=== PATIENT | male | born 1970 | race Caucasian/White ===

== ENCOUNTER 2016-11-06 17:29 | Emergency (ER) | payer MEDICAID, OTHER ==
[2016-11-06] MEDS ORDERED: Sodium Chloride 0.9% 2.5 ML Syringe FLUSH PRN (17:35)
[2016-11-06] MEDS ORDERED: Sodium Chloride 0.9% 10 ML Syringe FLUSH PRN (17:35)
[2016-11-06] MEDS ORDERED: Sodium Chloride 0.9% 1,000 ML IV SCH (17:45)
[2016-11-06] MEDS ORDERED: Ketorolac 30 MG/ML SDV IVPUSH ONE (17:49)
--- NOTE | 2016-11-06 17:55 | EDM.PDOC ---
ED HPI Trauma <Jerson Reno - Last Filed: 11/06/16 20:19> - General Source: Reports: Patient History Limitations: Reports: No limitations <Desiree Garcia - Last Filed: 11/07/16 07:18> - General Chief Complaint: Trauma Stated Complaint: UNK Time Seen by Provider: 11/06/16 17:32 - History of Present Illness INITIAL COMMENTS - FREE TEXT/NARRATIVE: History of present illness: [] Patient is currently housed at the residential and was found by staff hanging by a bed sheet with labored breathing with a radial pulse before being cut down. He did not lose consciousness at any time and complained of neck pain immediately. He was allowed to sit up and then complained of dizziness. Apparently according to Ofc. Marcel at the residential sent to text to his at 16:20 sating "I'm ending it". He then sent another text at 16:37 stating "I'm about to ". At 16 :42 the residential was distributing blankets and found him hanging in his cell. He denies any numbness or tingling to his extremities, shortness of breath, chest pain or headache. Review of systems: As per history of present illness and below otherwise all systems reviewed and negative. Past medical history: As per history of present illness and as reviewed below otherwise noncontributory. Surgical history: As per history of present illness and as reviewed below otherwise noncontributory. Social history: No reported history of drug or alcohol abuse. Family history: As per history of present illness and as reviewed below otherwise noncontributory. Physical exam: General: Well developed, well nourished in NAD HEENT: Atraumatic, normocephalic, pupils reactive, negative for conjunctival pallor or scleral icterus, mucous membranes moist, throat clear, neck supple, nontender, trachea midline. Lungs: Clear to auscultation, breath sounds equal bilaterally, chest nontender. Heart: S1S2, regular, negative for clicks, rubs, or JVD. Abdomen: Soft, nondistended, nontender. Negative for masses or hepatosplenomegaly. Negative for costovertebral tenderness. Pelvis: Stable nontender. Genitourinary: Deferred. Rectal: Deferred. Extremities: Atraumatic, negative for cords or calf pain. Neurovascular unremarkable. Neuro: Awake, alert, oriented. Cranial nerves II through XII unremarkable. Cerebellum unremarkable. Motor and sensory unremarkable throughout. Exam nonfocal. Diagnostics: [] Therapeutics: [] Impression: [] Plan: [] Definitive disposition and diagnosis as appropriate pending reevaluation and review of above. (Desiree Garcia) Allergies/ADRs: Allergies Penicillins Allergy (Verified 11/06/16 17:36) Hives Home Medications: Ambulatory Orders . [No Known Home Meds] 11/06/16 [Confirmed 11/06/16] Past Medical History - Past Health History Medical/Surgical History: Denies Medical/Surgical History <Desiree Garcia - Last Filed: 11/07/16 07:18> Social & Family History - Family History Family Medical History: Noncontributory - Tobacco Use Smoking Status *Q: Current Every Day Smoker Years of Tobacco use: 30 Packs/Tins Daily: 2 Used Tobacco, but Quit: No Second Hand Smoke Exposure: No - Alcohol Use Days Per Week of Alcohol Use: 7 Number of Drinks Per Day: 5 Total Drinks Per Week: 35 - Recreational Drug Use Recreational Drug Use: Yes Drug Use in Last 12 Months: Yes Recreational Drug Type: Reports: Heroin, Marijuana/Hashish, Methamphetamine Other Recreational Drug Type: Patient states "I do a lot of different drugs at different times." Recreational Drug Use Frequency: Daily <Desiree Garcia - Last Filed: 11/07/16 07:18> Review of Systems - Review of Systems Review Of Systems: See Below (See history of present illness) <Desiree Garcia - Last Filed: 11/07/16 07:18> ED EXAM, TRAUMA (MAJOR/MULTI) - Physical Exam Exam: See Below (See history of present illness) <Desiree Garcia - Last Filed: 11/07/16 07:18> Course <Jerson Reno - Last Filed: 11/06/16 20:19> <Desiree Garcia - Last Filed: 11/07/16 07:18> - Vital Signs Text/Narrative:: [facility] health services presented to evaluate patient patient has been medically cleared patient will be transferred to the [facility] psychiatric services in [place]. (Jerson Reno) Last Recorded V/S: Last Vital Signs Temp 37.1 C 11/06/16 21:00 Pulse 90 11/06/16 21:00 Resp 20 11/06/16 21:00 BP 127/79 11/06/16 21:00 Pulse Ox 97 11/06/16 21:00 (Jerson Reno) (Desiree Garcia) - Orders/Labs/Meds Orders: Active Orders 24 hr Category Date Time Status EKG Documentation Completion [RC] STAT Care 11/06/16 17:38 Active Cervical Spine 2V or 3V [CR] Stat Exams 11/06/16 17:33 Taken Cervical Spine wo Cont [CT] Stat Exams 11/06/16 18:56 Taken FREE T3 [REF] Stat Lab 11/06/16 18:45 Received Peripheral IV Insertion Adult [OM.PC] Stat Oth 11/06/16 17:35 Ordered (Jerson Reno) (Desiree Garcia) Labs: Laboratory Tests 11/06/16 11/06/16 11/06/16 Range/Units 17:54 18:02 18:02 WBC 10.89 (4.0-11.0) K/uL RBC 5.72 (4.50-5.90) M/uL Hgb 16.6 (13.0-17.0) g/dL Hct 49.5 (38.0-50.0) % MCV 86.5 (80.0-98.0) fL MCH 29.0 (27.0-32.0) pg MCHC 33.5 (31.0-37.0) g/dL RDW Std Deviation 44.8 (28.0-62.0) fl RDW Coeff of Joaquín 14 (11.0-15.0) % Plt Count 181 (150-400) K/uL MPV 11.80 (7.40-12.00) fL Neut % (Auto) 82.3 H (48.0-80.0) % Lymph % (Auto) 11.8 L (16.0-40.0) % Beaver % (Auto) 5.8 (0.0-15.0) % Eos % (Auto) 0.0 (0.0-7.0) % Baso % (Auto) 0.1 (0.0-1.5) % Neut # 9.0 H (1.4-5.7) K/uL Lymph # 1.3 (0.6-2.4) K/uL Beaver # 0.6 (0.0-0.8) K/uL Eos # 0.0 (0.0-0.7) K/uL Baso # 0.0 (0.0-0.1) K/uL Nucleated RBC % 0.0 /100WBC Nucleated RBCs # 0 K/uL Sodium (136-146) mmol/L Potassium (3.5-5.1) mmol/L Chloride (98-110) mmol/L Carbon Dioxide (21-31) mmol/L BUN (6.0-23.0) mg/dL Creatinine (0.6-1.5) mg/dL Est Cr Clr Drug Dosing mL/min Estimated GFR (MDRD) ml/min Glucose (60-110) mg/dL Calcium (8.8-10.8) mg/dL Magnesium (1.5-2.3) mEq/L Total Bilirubin (0.1-1.5) mg/dL AST (5-40) IU/L ALT (8-54) IU/L Alkaline Phosphatase (40-150) Total Protein (6.0-8.0) g/dL Albumin (3.5-5.0) g/dL Globulin (2.0-3.5) g/dL Albumin/Globulin Ratio (1.3-2.8) TSH 3rd Generation (0.47-5.0) uIU/mL Urine Color YELLOW Urine Appearance CLEAR Urine pH 6.0 (5.0-8.0) Ur Specific [place] 1.015 (1.001-1.035) Urine Protein NEGATIVE (NEGATIVE) mg/dL Urine Glucose (UA) NEGATIVE (NEGATIVE) mg/dL Urine Ketones 40 H (NEGATIVE) mg/dL Urine Occult Blood NEGATIVE (NEGATIVE) Urine Nitrite NEGATIVE (NEGATIVE) Urine Bilirubin NEGATIVE (NEGATIVE) Urine Urobilinogen 0.2 (<2.0) EU/dL Ur Leukocyte Esterase NEGATIVE (NEGATIVE) Urine RBC 0-2 (0-2/HPF) Urine WBC 0-1 (0-5/HPF) Ur Epithelial Cells RARE (NONE-FEW) Urine Bacteria RARE (NEGATIVE) Salicylates (0-20) mg/dL Urine Opiates Screen NEGATIVE (NEGATIVE) Ur Oxycodone Screen NEGATIVE (NEGATIVE) Urine Methadone Screen NEGATIVE (NEGATIVE) Acetaminophen ug/mL Ur Barbiturates Screen NEGATIVE (NEGATIVE) Ur Phencyclidine Scrn NEGATIVE (NEGATIVE) Ur Amphetamine Screen NEGATIVE (NEGATIVE) U Methamphetamines Scrn POSITIVE (NEGATIVE) U Benzodiazepines Scrn NEGATIVE (NEGATIVE) U Cocaine Metab Screen NEGATIVE (NEGATIVE) U Marijuana (THC) Screen POSITIVE (NEGATIVE) Ethyl Alcohol mg/dL 11/06/16 Range/Units 18:45 WBC (4.0-11.0) K/uL RBC (4.50-5.90) M/uL Hgb (13.0-17.0) g/dL Hct (38.0-50.0) % MCV (80.0-98.0) fL MCH (27.0-32.0) pg MCHC (31.0-37.0) g/dL RDW Std Deviation (28.0-62.0) fl RDW Coeff of Joaquín (11.0-15.0) % Plt Count (150-400) K/uL MPV (7.40-12.00) fL Neut % (Auto) (48.0-80.0) % Lymph % (Auto) (16.0-40.0) % Beaver % (Auto) (0.0-15.0) % Eos % (Auto) (0.0-7.0) % Baso % (Auto) (0.0-1.5) % Neut # (1.4-5.7) K/uL Lymph # (0.6-2.4) K/uL Beaver # (0.0-0.8) K/uL Eos # (0.0-0.7) K/uL Baso # (0.0-0.1) K/uL Nucleated RBC % /100WBC Nucleated RBCs # K/uL Sodium 142 (136-146) mmol/L Potassium 3.7 (3.5-5.1) mmol/L Chloride 110 (98-110) mmol/L Carbon Dioxide 21 (21-31) mmol/L BUN 7 (6.0-23.0) mg/dL Creatinine 1.0 (0.6-1.5) mg/dL Est Cr Clr Drug Dosing 106.53 mL/min Estimated GFR (MDRD) > 60.0 ml/min Glucose 111 H (60-110) mg/dL Calcium 8.8 (8.8-10.8) mg/dL Magnesium 1.6 (1.5-2.3) mEq/L Total Bilirubin 0.9 (0.1-1.5) mg/dL AST 31 (5-40) IU/L ALT 58 H (8-54) IU/L Alkaline Phosphatase 49 (40-150) Total Protein 7.4 (6.0-8.0) g/dL Albumin 4.0 (3.5-5.0) g/dL Globulin 3.4 (2.0-3.5) g/dL Albumin/Globulin Ratio 1.2 L (1.3-2.8) TSH 3rd Generation 0.85 (0.47-5.0) uIU/mL Urine Color Urine Appearance Urine pH (5.0-8.0) Ur Specific [place] (1.001-1.035) Urine Protein (NEGATIVE) mg/dL Urine Glucose (UA) (NEGATIVE) mg/dL Urine Ketones (NEGATIVE) mg/dL Urine Occult Blood (NEGATIVE) Urine Nitrite (NEGATIVE) Urine Bilirubin (NEGATIVE) Urine Urobilinogen (<2.0) EU/dL Ur Leukocyte Esterase (NEGATIVE) Urine RBC (0-2/HPF) Urine WBC (0-5/HPF) Ur Epithelial Cells (NONE-FEW) Urine Bacteria (NEGATIVE) Salicylates < 5.0 (0-20) mg/dL Urine Opiates Screen (NEGATIVE) Ur Oxycodone Screen (NEGATIVE) Urine Methadone Screen (NEGATIVE) Acetaminophen < 3.0 ug/mL Ur Barbiturates Screen (NEGATIVE) Ur Phencyclidine Scrn (NEGATIVE) Ur Amphetamine Screen (NEGATIVE) U Methamphetamines Scrn (NEGATIVE) U Benzodiazepines Scrn (NEGATIVE) U Cocaine Metab Screen (NEGATIVE) U Marijuana (THC) Screen (NEGATIVE) Ethyl Alcohol < 10.0 mg/dL (Jerson Reno) Meds: Medications Discontinued Medications Generic Name Dose Route Start Last Admin Trade Name Freq PRN Reason Stop Dose Admin Sodium Chloride 1,000 mls @ 999 mls/hr 11/06/16 17:45 11/06/16 18:26 Normal Saline IV 999 mls/hr .BOLUS BOSTON Administration Ketorolac Tromethamine 30 mg 11/06/16 17:49 11/06/16 18:01 Toradol IVPUSH 11/06/16 17:50 30 mg ONETIME ONE Administration Sodium Chloride 10 ml 11/06/16 17:35 11/06/16 18:01 Saline Flush FLUSH 10 ml ASDIRECTED PRN Administration Keep Vein Open Sodium Chloride 2.5 ml 11/06/16 17:35 11/06/16 18:29 Saline Flush FLUSH 2.5 ml ASDIRECTED PRN Administration Keep Vein Open (Jerson Reno) (Desiree Garcia) Departure - Departure Time of Disposition: 20:20 Condition: good <Jerson Reno - Last Filed: 11/06/16 20:19> <Desiree Garcia - Last Filed: 11/07/16 07:18> - Departure Disposition: DC/Tfer to Psych Hosp/Unit [facility] Clinical Impression: Suicide attempt, Medical clearance for psychiatric admission Referrals: PCP,None [Primary Care Provider] - Forms: ED Department Discharge
[2016-11-06 19:13] LABS: CHLORIDE,CL 110 mmol/L (98-110); SODIUM,NA 142 mmol/L (136-146)
[2016-11-06 19:17] LABS: ACETAMINOPHEN < 3.0 ug/mL
[2016-11-06 22:01] VITALS: BP 127/79
--- NOTE | 2016-11-07 14:38 | CR ---
EXAM DATE: 11/06/16 PATIENT'S AGE: 46 Patient: IRAJ STEWARD Facility: [place], [place] Site . Site : 1970 Study: XRay Spine Cervical [id number] 6:24:24 PM Ordering Physician: Jose Ramírez Final Report: HISTORY: Pain, attempted hanging. FINDINGS: Four views of cervical spine demonstrate the dens is intact. The lateral masses are situated normally on C2. The atlantodens interval is normal. The prevertebral soft tissues are normal. C1 and C2 appear normal. There is degenerative changes of the discs and uncovertebral joints within the cervical spine. Alignment is normal. C7-T1 is not well visualized on the swimmer`s view. IMPRESSION: 1. Degenerative changes of the disks and uncovertebral joints in the cervical spine. 2. C7-T1 alignment is not visualized. Otherwise, the visualized cervical spine is free of fracture or traumatic subluxation. Dictated by Belle Davis MD @ 11/06/2016 6:40:53 PM Dictated by: Belle Davis MD @ 11/06/2016 18:40:59 (Electronic Signature) Report Signed by Proxy and Original Signed Document filed in the Medical Record. SHRAVAN
--- NOTE | 2016-11-07 14:50 | CT ---
EXAM DATE: 11/06/16 PATIENT'S AGE: 46 Patient: IRAJ STEWARD Facility: [place], [place] Site . Site : 1970 Study: CT Spine Cervical [id number] 7:29:26 PM Ordering Physician: Jose Ramírez Final Report: INDICATION: Attempted hanging TECHNIQUE: CT cervical spine without contrast. COMPARISON: None FINDINGS: Vertebral alignment: Alignment is normal. Vertebrae: There are no fractures or suspicious bony lesions. Discs and facet joints: Disc spaces and facets are within normal limits. Extraspinal findings: Prevertebral soft tissues, visualized airway, and visualized lungs are unremarkable. IMPRESSION: No evidence of acute cervical spine trauma. Dictated by Oliver Camacho MD @ 11/06/2016 7:35:09 PM Dictated by: Oliver Camacho MD @ 11/06/2016 19:35:13 (Electronic Signature) Report Signed by Proxy and Original Signed Document filed in the Medical Record. [facility]
== END 2016-11-06 21:25 ==
LOC: MW.ED 17:29
DX: T14.91 Suicide attempt (principal); F17.210 Nicotine dependence, cigarettes, uncomplicated; M54.2 Cervicalgia
CPT/HCPCS: 36415; 72040; 72125; 80053; 80305; 81001; 83735; 84443; 84481; 85025; 93005; 96361; 96374; 99285; G0480; J1885; J7040

== ENCOUNTER 2018-01-08 15:16 | Emergency (ER) | payer SELFPAY ==
[2018-01-08] MEDS ORDERED: Sodium Chloride 0.9% 1,000 ML IV ONE (15:20)
[2018-01-08] MEDS ORDERED: Ondansetron 4 MG/2 ML SDV IVPUSH ONE (15:20)
--- NOTE | 2018-01-08 15:31 | EDM.PDOCBH ---
ED HPI GENERAL MEDICAL PROBLEM - General Chief Complaint: Drug or Alcohol Abuse Stated Complaint: POSS DRUG OVERDOSE Time Seen by Provider: 01/08/18 15:24 Source of Information: Reports: Patient, EMS, Police History Limitations: Reports: No Limitations - History of Present Illness INITIAL COMMENTS - FREE TEXT/NARRATIVE: HISTORY AND PHYSICAL: History of present illness: Patient is a 47-year-old male who presents to the emergency room today via ground EMS with altered mental status. Law enforcement arrived to the patient's with a search warrant for his arrest. Upon their arrival and investigation they found him obtunded with a suspected drug overdose. EMS was called, they administered 2 separate rounds of IV Narcan without any response from the patient. Patient's vital signs are stable and he does arouse to questions and able to follow simple commands. Patient admitted to using methamphetamine, but does not disclose when or how much. Review of systems: As per history of present illness and below otherwise all systems reviewed and negative. Past medical history: As per history of present illness and as reviewed below otherwise noncontributory. Surgical history: As per history of present illness and as reviewed below otherwise noncontributory. Social history: No reported history of drug or alcohol abuse. Family history: As per history of present illness and as reviewed below otherwise noncontributory. Physical exam: General: Nontoxic appearing 47-year-old male. Obtunded but arousable to stimulation. HEENT: Atraumatic, normocephalic, pupils equal, sluggish but reactive bilaterally, negative for conjunctival pallor or scleral icterus, mucous membranes moist, throat clear, neck supple, nontender, trachea midline. No drooling or trismus noted. No meningeal signs Lungs: Clear to auscultation, breath sounds equal bilaterally, chest nontender. Heart: S1S2, regular rate and rhythm without overt murmur Abdomen: Soft, nondistended, nontender. Negative for masses or hepatosplenomegaly. Negative for costovertebral tenderness. Pelvis: Stable nontender. Genitourinary: Deferred. Rectal: Deferred. Skin: Scars noted to left inner wrist. Otherwise skin is intact, warm, dry. No lesions or rashes noted. Extremities: Moves all extremities per self. Strong radial and pedal pulses bilaterally. Neurovascular unremarkable. Neuro: Awake, alert, oriented. Cranial nerves II through XII unremarkable. Cerebellum unremarkable. Motor and sensory unremarkable throughout. Exam nonfocal. Notes: Patient does have a history of suicidal attempts and self mutilation. Known to law enforcement for methamphetamine abuse. When staff is in room and requesting a urine sample patient is verbal and sitting up on the cot. His vital signs are stable. Patient declines a Bloom for urinalysis. Lab work is unremarkable with the exception of his urine drug screening showing positive for amphetamines, methamphetamines, cocaine and marijuana. Will and alert and oriented. He will be discharged in the custody of law enforcement. Diagnostics: CBC, CMP, UA, urine drug screen, acetaminophen, salicylate, EKG, chest x-ray, head CT Therapeutics: IV fluids, Zofran Impression: Drug abuse Plan: 1. Please stop all drug use. 2. Follow-up with a primary caregiver in the next 1-2 days. Return to the ED as needed and as discussed. Definitive disposition and diagnosis as appropriate pending reevaluation and review of above. - Related Data Allergies Allergy/AdvReac Type Severity Reaction Status Date / Time Penicillins Allergy Hives Verified 11/06/16 17:36 Home Meds: Home Meds . [No Known Home Meds] 11/06/16 [History] Past Medical History - Past Health History Medical/Surgical History: Denies Medical/Surgical History Social & Family History - Family History Family Medical History: Noncontributory ED ROS GENERAL - Review of Systems Review Of Systems: ROS reveals no pertinent complaints other than HPI. ED EXAM, BEHAVIORAL HEALTH - Physical Exam Exam: See Below (See dictation) COURSE, BEHAVIORAL HEALTH COMP - Course Vital Signs: Last Vital Signs Temp 98.9 F 01/08/18 15:23 Pulse 89 01/08/18 15:23 Resp 24 H 01/08/18 15:23 BP 144/87 H 01/08/18 15:23 Pulse Ox 98 01/08/18 15:23 Orders, Labs, Meds: Active Orders 24 hr Category Date Time Status EKG Documentation Completion [RC] STAT Care 01/08/18 15:20 Active ACETAMINOPHEN [CHEM] Stat Lab 01/08/18 13:23 Received COMPREHENSIVE METABOLIC PN,CMP [CHEM] Stat Lab 01/08/18 13:23 Received DRUG SCREEN, URINE [URCHEM] Stat Lab 01/08/18 15:15 Ordered SALICYLATE [CHEM] Stat Lab 01/08/18 13:23 Received UA W/MICROSCOPIC [URIN] Stat Lab 01/08/18 15:15 Ordered Laboratory Tests 01/08/18 01/08/18 01/08/18 Range/Units 13:23 15:15 15:15 WBC 5.51 (4.0-11.0) K/uL RBC 5.62 (4.50-5.90) M/uL Hgb 16.3 (13.0-17.0) g/dL Hct 48.9 (38.0-50.0) % MCV 87.0 (80.0-98.0) fL MCH 29.0 (27.0-32.0) pg MCHC 33.3 (31.0-37.0) g/dL RDW Std Deviation 45.3 (28.0-62.0) fl RDW Coeff of Joaquín 14 (11.0-15.0) % Plt Count 131 L (150-400) K/uL MPV 12.20 H (7.40-12.00) fL Neut % (Auto) 78.4 (48.0-80.0) % Lymph % (Auto) 12.9 L (16.0-40.0) % [place] % (Auto) 8.0 (0.0-15.0) % Eos % (Auto) 0.2 (0.0-7.0) % Baso % (Auto) 0.5 (0.0-1.5) % Neut # (Auto) 4.3 (1.4-5.7) K/uL Lymph # (Auto) 0.7 (0.6-2.4) K/uL [place] # (Auto) 0.4 (0.0-0.8) K/uL Eos # (Auto) 0.0 (0.0-0.7) K/uL Baso # (Auto) 0.0 (0.0-0.1) K/uL Nucleated RBC % 0.0 /100WBC Nucleated RBCs # 0 K/uL Urine Color YELLOW Urine Appearance SLT CLOUDY Urine pH 5.5 (5.0-8.0) Ur Specific [place] >= 1.030 (1.001-1.035) Urine Protein TRACE (NEGATIVE) mg/dL Urine Glucose (UA) NEGATIVE (NEGATIVE) mg/dL Urine Ketones 15 H (NEGATIVE) mg/dL Urine Occult Blood LARGE H (NEGATIVE) Urine Nitrite NEGATIVE (NEGATIVE) Urine Bilirubin SMALL H (NEGATIVE) Urine Ictotest NEGATIVE Urine Urobilinogen 1.0 (<2.0) EU/dL Ur Leukocyte Esterase NEGATIVE (NEGATIVE) Urine RBC 4-6 (0-2/HPF) Urine WBC 0-1 (0-5/HPF) Ur Epithelial Cells RARE (NONE-FEW) Urine Bacteria FEW (NEGATIVE) Urinalysis Comment Urine Opiates Screen NEGATIVE (NEGATIVE) Ur Oxycodone Screen NEGATIVE (NEGATIVE) Urine Methadone Screen NEGATIVE (NEGATIVE) Ur Barbiturates Screen NEGATIVE (NEGATIVE) Ur Phencyclidine Scrn NEGATIVE (NEGATIVE) Ur Amphetamine Screen POSITIVE (NEGATIVE) U Methamphetamines Scrn POSITIVE (NEGATIVE) U Benzodiazepines Scrn NEGATIVE (NEGATIVE) U Cocaine Metab Screen POSITIVE (NEGATIVE) U Marijuana (THC) Screen POSITIVE (NEGATIVE) Medications Discontinued Medications Generic Name Dose Route Start Last Admin Trade Name Freq PRN Reason Stop Dose Admin Sodium Chloride 1,000 mls @ 999 mls/hr 01/08/18 15:20 01/08/18 15:30 Normal Saline IV 01/08/18 16:20 999 mls/hr STAT ONE Administration Ondansetron HCl 4 mg 01/08/18 15:20 01/08/18 15:30 Zofran IVPUSH 01/08/18 15:21 4 mg ONETIME ONE Administration Departure - Departure Time of Disposition: 16:39 Disposition: Home, Self-Care 01 Clinical Impression: Drug abuse - Discharge Information Instructions: Substance Use Disorder Forms: ED Department Discharge Additional Instructions: The following information is given to patients seen in the emergency department who are being discharged to home. This information is to outline your options for follow-up care. We provide all patients seen in our emergency department with a follow-up referral. The need for follow-up, as well as the timing and circumstances, are variable depending upon the specifics of your emergency department visit. If you don't have a primary care physician on staff, we will provide you with a referral. We always advise you to contact your personal physician following an emergency department visit to inform them of the circumstance of the visit and for follow-up with them and/or the need for any referrals to a consulting specialist. The emergency department will also refer you to a specialist when appropriate. This referral assures that you have the opportunity for follow-up care with a specialist. All of these measure are taken in an effort to provide you with optimal care, which includes your follow-up. Under all circumstances we always encourage you to contact your private physician who remains a resource for coordinating your care. When calling for follow-up care, please make the office aware that this follow-up is from your recent emergency room visit. If for any reason you are refused follow-up, please contact the [facility] Emergency Department at and asked to speak to the emergency department charge nurse. [facility] [address] [place] [id number] 1. Please stop all drug use. 2. Follow-up with a primary caregiver in the next 1-2 days. Return to the ED as needed and as discussed. - My Orders Last 24 Hours: My Active Orders 01/08/18 13:23 ACETAMINOPHEN [CHEM] Stat COMPREHENSIVE METABOLIC PN,CMP [CHEM] Stat SALICYLATE [CHEM] Stat 01/08/18 15:15 DRUG SCREEN, URINE [URCHEM] Stat UA W/MICROSCOPIC [URIN] Stat 01/08/18 15:20 EKG Documentation Completion [RC] STAT - Assessment/Plan Last 24 Hours: My Active Orders 01/08/18 13:23 ACETAMINOPHEN [CHEM] Stat COMPREHENSIVE METABOLIC PN,CMP [CHEM] Stat SALICYLATE [CHEM] Stat 01/08/18 15:15 DRUG SCREEN, URINE [URCHEM] Stat UA W/MICROSCOPIC [URIN] Stat 01/08/18 15:20 EKG Documentation Completion [RC] STAT
--- NOTE | 2018-01-08 16:16 | CT ---
EXAMINATION: Non contrast CT head. Coronal and sagittal reformats. HISTORY: Pain FINDINGS: No evidence of intra or extra axial hemorrhage, mass, midline shift, hydrocephalus or edema. No hypoattenuation changes in the major vascular territories to suggest acute infarct. No abnormal intracranial calcifications are detected. No evidence of substantial vascular calcificat ions. Paranasal sinuses and mastoid air cells are well aerated without substantial findings. The orbits an d globes are symmetric. Pituitary fossa appears unremarkable. Calvarium is intact. No evidence of skull fracture. IMPRESSION: No acute intracranial findings.
--- NOTE | 2018-01-08 16:26 | CR ---
EXAMINATION: Portable chest radiograph. HISTORY: Altered LOC. FINDINGS: The trachea is midline. The cardiomediastinal silhouette is within normal limits. No pulmonary infilt rates, effusions or pneumothorax. Osseous structures appear unremarkable. IMPRESSION: No acute cardiopulmonary process.
[2018-01-08 16:50] VITALS: BP 130/80
== END 2018-01-08 16:45 | disposition home or self-care (01) ==
LOC: MW.ED 15:16
DX: F15.10 Other stimulant abuse, uncomplicated (principal); Z88.0 Allergy status to penicillin
CPT/HCPCS: 36415; 70450; 71045; 80053; 80305; 81001; 85025; 96361; 96374; 99285; G0480; J2405; J7040

== ENCOUNTER 2020-06-21 16:26 | Emergency (ER) | payer SELFPAY ==
--- NOTE | 2020-06-21 17:09 | EDM.PDOC ---
ED HPI GENERAL MEDICAL PROBLEM - General Chief Complaint: General Stated Complaint: MEDICAL CLEARANCE Time Seen by Provider: 06/21/20 17:07 Source of Information: Reports: Patient History Limitations: Reports: No Limitations - History of Present Illness INITIAL COMMENTS - FREE TEXT/NARRATIVE: HISTORY AND PHYSICAL: History of present illness: Patient is a 50-year-old male who presents to the emergency room with law enforcement for medical screening exam. Is refusing any form of diagnostics and states he wants to leave. He offers no complaints or concerns at this time. He denies any alcohol or drug abuse. Review of systems: As per history of present illness and below otherwise all systems reviewed and negative. Past medical history: As per history of present illness and as reviewed below otherwise noncontributory. Surgical history: As per history of present illness and as reviewed below otherwise noncontributory. Social history: See social history for further information Family history: As per history of present illness and as reviewed below otherwise noncontributory. Physical exam: General: Well developed and well nourished. Alert and orientated x 3. Nontoxic in appearance and in no acute distress. Vital signs are stable and have been reviewed by me. Nursing notes were reviewed. HEENT: Atraumatic, normocephalic, pupils equal and reactive bilaterally, negative for conjunctival pallor or scleral icterus, mucous membranes moist, trachea midline. No drooling or trismus noted. No meningeal signs. No hot potato voice noted. Lungs: Clear to auscultation, breath sounds equal bilaterally, chest nontender. Normal work of breathing, no accessory muscles used. Heart: S1S2, regular rate and rhythm without overt murmur Abdomen: Soft, nondistended, nontender. Skin: Intact, warm, dry. No lesions or rashes noted. Hematologic: No petechiae or purpra. Mucosa appropriate color and normal nail bed color and refill. Extremities: Atraumatic, moves all extremities per self without difficulty or deficits. Neurovascular unremarkable. Neuro: Awake, alert, oriented. Motor and sensory unremarkable throughout. Exam nonfocal. Psychiatric: Mood and affect are appropriate. Normal thought process. Answering questions appropriately. Notes: Patient did allow me to do a limited physical exam which was within normal limits. He is refusing vital signs or any form of diagnostics. The patient appears to be stable for discharge based on the limited exam he would alow, counseling was provided and we discussed in great detail signs and symptoms that would prompt them to return to the Emergency Department. Medication, follow up and supportive care measures were reviewed and discussed. Voices understanding and is agreeable to plan of care. Denies any further questions or concerns at this time. Diagnostics: Declines Therapeutics: Declines Prescription: None Impression: Encounter for medical screening exam Plan: 1. Today you refused to be evaluated in the emergency room. 2. We encourage you to follow up with your primary care provider and/or recommended specialist in the next few days for re-evaluation and further care/management. If your symptoms should worsen, new symptoms develop or any of the signs and symptoms we discussed should arise please return to the emergency room or call 911 (if needed). Definitive disposition and diagnosis as appropriate pending reevaluation and review of above. - Related Data Allergies Allergy/AdvReac Type Severity Reaction Status Date / Time Penicillins Allergy Hives Verified 11/06/16 17:36 Home Meds: Home Meds . [No Known Home Meds] 11/06/16 [History] Past Medical History - Past Health History Medical/Surgical History: Denies Medical/Surgical History HEENT History: Reports: Other (See Below) Other HEENT History: unable to assess Cardiovascular History: Reports: Other (See Below) Other Cardiovascular History: unable to assess Respiratory History: Reports: Other (See Below) Other Respiratory History: unable to assess Gastrointestinal History: Reports: Other (See Below) Other Gastrointestinal History: unable to assess Genitourinary History: Reports: Other (See Below) Other Genitourinary History: unable to assess Musculoskeletal History: Reports: Other (See Below) Other Musculoskeletal History: unable to assess Neurological History: Reports: Other (See Below) Other Neuro History: unable to assess Psychiatric History: Reports: Other (See Below) Other Psychiatric History: unable to assess Endocrine/Metabolic History: Reports: Other (See Below) Other Endocrine/Metabolic History: unable to assess Hematologic History: Reports: Other (See Below) Other Hematologic History: unable to assess Immunologic History: Reports: Other (See Below) Other Immunologic History: unable to assess Oncologic (Cancer) History: Reports: Other (See Below) Other Oncologic History: unable to assess Dermatologic History: Reports: Other (See Below) Other Dermatologic History: unable to assess - Infectious Disease History Infectious Disease History: Reports: Other (See Below) Other Infectious Disease History: unable to assess - Past Surgical History Head Surgeries/Procedures: Reports: Other (See Below) HEENT Surgical History: Reports: Other (See Below) Other HEENT Surgeries/Procedures: unable to assess Cardiovascular Surgical History: Reports: Other (See Below) Other Cardiovascular Surgeries/Procedures: unable to assess Respiratory Surgical History: Reports: Other (See Below) Other Respiratory Surgeries/Procedures: unable to assess GI Surgical History: Reports: Other (See Below) Other GI Surgeries/Procedures: unable to assess Male Surgical History: Reports: Other (See Below) Other Male Surgeries/Procedures: unable to assess Endocrine Surgical History: Reports: Other (See Below) Other Endocrine Surgeries/Procedures: unable to assess Neurological Surgical History: Reports: Other (See Below) Other Neurological Surgeries/Procedures: unable to assess Musculoskeletal Surgical History: Reports: Other (See Below) Other Musculoskeletal Surgeries/Procedures:: unable to assess Oncologic Surgical History: Reports: Other (See Below) Other Oncologic Surgeries/Procedures: unable to assess Dermatological Surgical History: Reports: Other (See Below) Social & Family History - Family History Family Medical History: Noncontributory - Caffeine Use Other Caffeine Use: unable to assess ED ROS GENERAL - Review of Systems Review Of Systems: Comprehensive ROS is negative, except as noted in HPI. ED EXAM, GENERAL - Physical Exam Exam: See Below (See dictation) Departure - Departure Time of Disposition: 17:08 Disposition: Home, Self-Care 01 Clinical Impression: Encounter for medical screening examination - Discharge Information Instructions: Medical Screening Exam Referrals: PCP,None [Primary Care Provider] - Forms: ED Department Discharge Additional Instructions: The following information is given to patients seen in the emergency department who are being discharged to home. This information is to outline your options for follow-up care. We provide all patients seen in our emergency department with a follow-up referral. The need for follow-up, as well as the timing and circumstances, are variable depending upon the specifics of your emergency department visit. If you don't have a primary care physician on staff, we will provide you with a referral. We always advise you to contact your personal physician following an emergency department visit to inform them of the circumstance of the visit and for follow-up with them and/or the need for any referrals to a consulting specialist. The emergency department will also refer you to a specialist when appropriate. This referral assures that you have the opportunity for follow-up care with a specialist. All of these measure are taken in an effort to provide you with optimal care, which includes your follow-up. Under all circumstances we always encourage you to contact your private physician who remains a resource for coordinating your care. When calling for follow-up care, please make the office aware that this follow-up is from your recent emergency room visit. If for any reason you are refused follow-up, please contact the [facility] Emergency Department at and asked to speak to the emergency department charge nurse. [facility] [address] [place] [address] [id number] [address] [address] Thank you for choosing the [facility] emergency department in [place] for your medical needs today. It was a pleasure caring for you. Today you were seen in the emergency department for medical screening evaluation. 1. Today you refused to be evaluated in the emergency room. 2. We encourage you to follow up with your primary care provider and/or recommended specialist in the next few days for re-evaluation and further care/management. If your symptoms should worsen, new symptoms develop or any of the signs and symptoms we discussed should arise please return to the emergency room or call 911 (if needed).
== END 2020-06-21 17:12 | disposition home or self-care (01) ==
LOC: MW.ED 16:26
DX: Z13.9 Encounter for screening, unspecified (principal); Z88.0 Allergy status to penicillin
CPT/HCPCS: 99283

== ENCOUNTER 2020-11-15 19:06 | Observation (INO) | payer OTHER ==
[2020-11-15] MEDS ORDERED: Sodium Chloride 0.9% 10 ML Syringe FLUSH PRN (19:45)
[2020-11-15] MEDS ORDERED: Sodium Chloride 0.9% 2.5 ML Syringe FLUSH PRN (19:45)
[2020-11-15] MEDS ORDERED: LORazepam 2 MG/ML SDV IVPUSH ONE ×2 (19:45→20:21)
[2020-11-15] MEDS ORDERED: MVI, Adult with Vitamin K 10 ML, Thiamine 100 MG, Folic Acid 1 MG in Sodium Chloride 0.... IV ONE ×4 (19:46)
[2020-11-15 20:11] LABS: BLOOD UREA NITROGEN,BUN 15 mg/dL (7.0-18.0); CHLORIDE,CL 98 mmol/L (98-107); GLUCOSE RANDOM 158 mg/dL (74-106); POTASSIUM,K 4.2 mmol/L (3.5-5.1); SODIUM,NA 137 mmol/L (136-148)
[2020-11-15 20:17] LABS: CARBON DIOXIDE,CO2 21.5 mmol/L (21.0-32.0)
[2020-11-15] MEDS ORDERED: Vancomycin 1.5 GM in Sodium Chloride 0.9% 500 ML IV STA (20:49)
[2020-11-15] MEDS ORDERED: Meropenem 1 GM in Sodium Chloride 0.9% 100 ML IV STA (20:56)
[2020-11-15] MEDS ORDERED: Sodium Chloride 0.9% 1,000 ML IV ONE (20:59)
--- NOTE | 2020-11-15 21:00 | CR ---
INDICATION: Tachycardia. Withdrawal. TECHNIQUE: AP upright portable chest. COMPARISON: January 08, 2018. FINDINGS: Better inspiratory effort than the prior study. Clear lungs. Normal heart size and pulmonary vascularity. Normal included skeleton. Impression : Negative portable chest. Dictated by Julio Frausto MD @ Nov 15 2020 8:58PM Signed by Dr. Julio Frausto @ Nov 15 2020 8:58PM
[2020-11-15] MEDS ORDERED: VANCOmycin 1.5 GM/300 ML 1.5 GM in Premix Bag 1 BAG IV ONE (21:30)
--- NOTE | 2020-11-15 21:43 | PCM.SN.2 ---
- Free Text/Narrative Note: G at 2035 hrs. sinus tachycardia heart rate 107 RSR prime in V1 and 2 Q waves in the anterior septal leads. Compared to 01/08/2018 no change. Impression no acute injury
[2020-11-15] MEDS ORDERED: Diazepam 2 MG Tab PO ONE (22:18)
[2020-11-15 22:34] LABS: CORONAVIRUS COVID-19 NAA NEGATIVE (NEGATIVE); INFLUENZA A NAA NEGATIVE (NEGATIVE); INFLUENZA B NAA NEGATIVE (NEGATIVE)
--- NOTE | 2020-11-15 22:36 | EDM.PDOC ---
ED HPI GENERAL MEDICAL PROBLEM - General Chief Complaint: Chest Pain Stated Complaint: CHEST PAINS Time Seen by Provider: 11/15/20 19:13 Source of Information: Reports: Patient History Limitations: Reports: No Limitations - History of Present Illness INITIAL COMMENTS - FREE TEXT/NARRATIVE: HISTORY AND PHYSICAL: History of present illness: Patient is a 50-year-old male who presents to the ED today in law enforcement custody for chest pain that has been ongoing over the past several days but constant since 6 this afternoon. Law enforcement states that starting at 6 he also began shaking and brought him to the emergency room. Patient states that he has an extensive history of drug use and states that he is also a chronic alcohol user. Patient states that he drinks up to half a gallon of hard alcohol daily but states that when he got arrested 3 to 4 days ago, he has not been able to drink alcohol. Patient states that he also uses methamphetamine, marijuana, and IV drugs. Patient states that he last used IV drugs about 1 week ago just before getting arrested. Patient states that over the past several days he has had intermittent chest pain which worsened today and became constant. Patient states that he began shaking and believes he is withdrawing from alcohol. Patient states that he feels anxious as well. Patient denies any abdominal pain or any other symptoms or concerns. States that he has had chills but has not had the means to check a temperature. Patient denies shortness of breath, or cough. Denies headache, neck stiff ness, change in vision, syncope, or near syncope. Denies nausea, vomiting, abdominal pain, diarrhea, constipation, or dysuria. Has not noted any blood in urine or stool. Review of systems: As per history of present illness and below otherwise all systems reviewed and negative. Past medical history: As per history of present illness and as reviewed below otherwise noncontributory. Surgical history: As per history of present illness and as reviewed below otherwise noncontributory. Social history: See social history for further information Family history: As per history of present illness and as reviewed below otherwise noncontributory. Physical exam: General: Patient is alert, oriented, and in no acute distress. Patient laying on exam table, visibly tremulous. HR 150s on arrival and hypertensive 200s/100s. Otherwise, vitally stable and reviewed by me. HEENT: Atraumatic, normocephalic, pupils equal and reactive bilaterally, negative for conjunctival pallor or scleral icterus, mucous membranes moist, TMs normal bilaterally, throat clear, neck supple, nontender, trachea midline. No drooling or trismus noted. No meningeal signs. No hot potato voice noted. Lungs: Clear to auscultation, breath sounds equal bilaterally, chest nontender. Heart: S1S2, regular rate and rhythm without overt murmur Abdomen: Soft, nondistended, nontender. Negative for masses or hepatosplenomegaly. Negative for costovertebral tenderness. Pelvis: Stable nontender. Genitourinary: Deferred. Rectal: Deferred. Skin: Intact, warm, dry. No lesions or rashes noted. Extremities: Visibly tremulous. Atraumatic, negative for cords or calf pain. Neurovascular unremarkable. Neuro: Awake, alert, oriented. Cranial nerves II through XII unremarkable. Cerebellum unremarkable. Motor and sensory unremarkable throughout. Exam nonfoc al. Notes: Upon arrival to the ED, patient is tachycardic 150s to 160s and quite tremulous on exam. He is also hypertensive and states that he is a chronic alcohol user. I am highly suspicious for alcohol withdrawal. CIWA score of 28. See Dr. Conway documentation for specific EKG interpretation. Sinus tachycardia w/o STEMI. 4 mg IV Ativan initiated upon arrival with reassessment q. 20 minutes. After 20 minutes, patient heart rate is 120 with slight improvement of tremors. An additional 4 mg IV Ativan is given. Reassessment after 20 minutes shows that patient's heart rate is now around 100 and tremors have resolved, blood pressure is now 136/30. At this point, I am able to establish a better HPI. Patient states that he is an IV drug user as well as a chronic alcoholic. Patient states that he is likely withdrawing from alcohol and states that he has also been having chest pain that is worsened this afternoon. Will obtain lab work including cardiac work-up. Patient does have leukocytosis of 14.14 and elevated lactate at 4.5. Although this is likely reactive and secondary to patient's dehydration and withdrawal, I cannot rule out sepsis at this time. Blood cultures are drawn and initiation of meropenem and vancomycin given for empiric sepsis treatment as well as a 30mg/kg fluid resuscitation. I did call and speak to the hospitalist on-call, Dr. Rogers, and thoroughly d iscussed patient's case. Will admit to observation telemetry and per Dr. Melvin, will give patient 10mg PO Valium. Patient discharged to the hospital floor in stable condition Diagnostics: EKG, CBC, CMP, UA, CXR, CPK, Trop, Ddimer, Lactate, Blood cultures x 2 Therapeutics: Banana bag, NS, Ativan 8mg, Valium 10mg PO, Meropenem, Vancomycin Impression: Alcohol withdraw Leukocytosis Lactic acidosis r/o sepsis Plan: Admit to observation to Dr. Melvin on telemetry Definitive disposition and diagnosis as appropriate pending reevaluation and review of above. chest Pain Score (Numeric/FACES): 10 - Related Data Allergies Allergy/AdvReac Type Severity Reaction Status Date / Time Penicillins Allergy Hives Verified 11/15/20 19:16 Home Meds: Home Meds . [No Known Home Meds] 11/06/16 [History] Past Medical History - Past Health History Medical/Surgical History: Denies Medical/Surgical History HEENT History: Reports: Other (See Below) Other HEENT History: unable to assess Cardiovascular History: Reports: Other (See Below) Other Cardiovascular History: unable to assess Respiratory History: Reports: Other (See Below) Other Respiratory History: unable to assess Gastrointestinal History: Reports: Other (See Below) Other Gastrointestinal History: unable to assess Genitourinary History: Reports: Other (See Below) Other Genitourinary History: unable to assess Musculoskeletal History: Reports: Other (See Below) Other Musculoskeletal History: unable to assess Neurological History: Reports: Other (See Below) Other Neuro History: unable to assess Psychiatric History: Reports: Other (See Below) Other Psychiatric History: unable to assess Endocrine/Metabolic History: Reports: Other (See Below) Other Endocrine/Metabolic History: unable to assess Hematologic History: Reports: Other (See Below) Other Hematologic History: unable to assess Immunologic History: Reports: Other (See Below) Other Immunologic History: unable to assess Oncologic (Cancer) History: Reports: Other (See Below) Other Oncologic History: unable to assess Dermatologic History: Reports: Other (See Below) Other Dermatologic History: unable to assess - Infectious Disease History Infectious Disease History: Reports: Other (See Below) Other Infectious Disease History: unable to assess - Past Surgical History Head Surgeries/Procedures: Reports: Other (See Below) HEENT Surgical History: Reports: Other (See Below) Cardiovascular Surgical History: Reports: Other (See Below) Respiratory Surgical History: Reports: Other (See Below) GI Surgical History: Reports: Other (See Below) Male Surgical History: Reports: Other (See Below) Endocrine Surgical History: Reports: Other (See Below) Neurological Surgical History: Reports: Other (See Below) Musculoskeletal Surgical History: Reports: Other (See Below) Oncologic Surgical History: Reports: Other (See Below) Dermatological Surgical History: Reports: Other (See Below) Social & Family History - Family History Family Medical History: No Pertinent Family History - Tobacco Use Packs/Tins Daily: 2 - Caffeine Use Caffeine Use: Reports: None Other Caffeine Use: unable to assess - Recreational Drug Use Recreational Drug Use: No ED ROS GENERAL - Review of Systems Review Of Systems: Comprehensive ROS is negative, except as noted in HPI. ED EXAM, GENERAL - Physical Exam Exam: See Below (see dictation) Course - Vital Signs Last Recorded V/S: Last Vital Signs Temp 97 F 11/15/20 19:11 Pulse 116 H 11/15/20 21:56 Resp 18 11/15/20 21:56 BP 136/90 11/15/20 21:56 Pulse Ox 99 11/15/20 21:56 - Orders/Labs/Meds Orders: Active Orders 24 hr Category Date Time Status Admission Status [Patient Status] [ADT] Stat ADT 11/15/20 22:16 Active Cardiac Monitoring [RC] . DIRECTED Care 11/15/20 19:45 Active EKG Documentation Completion [RC] STAT Care 11/15/20 19:45 Active COVID-19/FLU A+B [MOLEC] Stat Lab 11/15/20 21:42 Received CULTURE BLOOD [BC] Stat Lab 11/15/20 21:10 Received CULTURE BLOOD [BC] Stat Lab 11/15/20 21:17 Received Sodium Chloride 0.9% [Saline Flush] Med 11/15/20 19:45 Active 10 ml FLUSH ASDIRECTED PRN Sodium Chloride 0.9% [Saline Flush] Med 11/15/20 19:45 Active 2.5 ml FLUSH ASDIRECTED PRN VANCOmycin 1.5 GM/300 ML 1.5 gm Med 11/15/20 21:30 Active Premix Bag 1 bag IV ONETIME Blood Culture x2 Reflex Set [OM.PC] Stat Oth 11/15/20 20:55 Ordered Saline Lock Insert [OM.PC] Stat Oth 11/15/20 19:45 Ordered Medication Orders Vancomycin HCl 1.5 gm/ Premix 300 mls @ 200 mls/hr IV ONETIME ONE Stop: 11/15/20 22:59 Last Admin: 11/15/20 21:41 Dose: 200 mls/hr Documented by: DAMIÁN Sodium Chloride (Sodium Chloride 0.9% 10 Ml Syringe) 10 ml FLUSH ASDIRECTED PRN PRN Reason: Keep Vein Open Last Admin: 11/15/20 19:56 Dose: 10 ml Documented by: PETROS Sodium Chloride (Sodium Chloride 0.9% 2.5 Ml Syringe) 2.5 ml FLUSH ASDIRECTED PRN PRN Reason: Keep Vein Open Last Admin: 11/15/20 19:56 Dose: 2.5 ml Documented by: PETROS Labs: Laboratory Tests 11/15/20 11/15/20 11/15/20 Range/Units 19:35 19:35 19:35 WBC 14.14 H (4.0-11.0) K/uL RBC 6.71 H (4.50-5.90) M/uL Hgb 19.9 H (13.0-17.0) g/dL Hct 59.3 H (38.0-50.0) % MCV 88.4 (80.0-98.0) fL MCH 29.7 (27.0-32.0) pg MCHC 33.6 (31.0-37.0) g/dL RDW Std Deviation 45.7 (28.0-62.0) fl RDW Coeff of Joaquín 14 (11.0-15.0) % Plt Count 184 (150-400) K/uL MPV 11.10 (7.40-12.00) fL Neut % (Auto) 83.4 H (48.0-80.0) % Lymph % (Auto) 12.1 L (16.0-40.0) % Tyler % (Auto) 4.1 (0.0-15.0) % Eos % (Auto) 0.2 (0.0-7.0) % Baso % (Auto) 0.2 (0.0-1.5) % Neut # (Auto) 11.8 H (1.4-5.7) K/uL Lymph # (Auto) 1.7 (0.6-2.4) K/uL Tyler # (Auto) 0.6 (0.0-0.8) K/uL Eos # (Auto) 0.0 (0.0-0.7) K/uL Baso # (Auto) 0.0 (0.0-0.1) K/uL Nucleated RBC % 0.0 /100WBC Nucleated RBCs # 0 K/uL D-Dimer, Quantitative 0.36 (0.0-0.50) mg/L FEU Lactate (0.20-2.00) mmol/L Sodium 137 (136-148) mmol/L Potassium 4.2 (3.5-5.1) mmol/L Chloride 98 (98-107) mmol/L Carbon Dioxide 21.5 (21.0-32.0) mmol/L BUN 15 (7.0-18.0) mg/dL Creatinine 1.8 H (0.8-1.3) mg/dL Est Cr Clr Drug Dosing 37.13 mL/min Estimated GFR (MDRD) 40.5 ml/min Glucose 158 H (74-106) mg/dL Calcium 9.4 (8.5-10.1) mg/dL Total Bilirubin 0.6 (0.2-1.0) mg/dL AST 27 (15-37) IU/L ALT 50 (14-63) IU/L Alkaline Phosphatase 74 (46-116) U/L Creatine Kinase (26-308) U/L Troponin I < 0.050 (0.000-0.056) ng/mL Total Protein 8.9 H (6.4-8.2) g/dL Albumin 4.3 (3.4-5.0) g/dL Globulin 4.6 H (2.6-4.0) g/dL Albumin/Globulin Ratio 0.9 (0.9-1.6) Urine Color Urine Appearance Urine pH (5.0-8.0) Ur Specific Clayton (1.001-1.035) Urine Protein (NEGATIVE) mg/dL Urine Glucose (UA) (NEGATIVE) mg/dL Urine Ketones (NEGATIVE) mg/dL Urine Occult Blood (NEGATIVE) Urine Nitrite (NEGATIVE) Urine Bilirubin (NEGATIVE) Urine Urobilinogen (<2.0) EU/dL Ur Leukocyte Esterase (NEGATIVE) 11/15/20 11/15/20 11/15/20 Range/Units 20:25 20:25 21:35 WBC (4.0-11.0) K/uL RBC (4.50-5.90) M/uL Hgb (13.0-17.0) g/dL Hct (38.0-50.0) % MCV (80.0-98.0) fL MCH (27.0-32.0) pg MCHC (31.0-37.0) g/dL RDW Std Deviation (28.0-62.0) fl RDW Coeff of Joaquín (11.0-15.0) % Plt Count (150-400) K/uL MPV (7.40-12.00) fL Neut % (Auto) (48.0-80.0) % Lymph % (Auto) (16.0-40.0) % Tyler % (Auto) (0.0-15.0) % Eos % (Auto) (0.0-7.0) % Baso % (Auto) (0.0-1.5) % Neut # (Auto) (1.4-5.7) K/uL Lymph # (Auto) (0.6-2.4) K/uL Tyler # (Auto) (0.0-0.8) K/uL Eos # (Auto) (0.0-0.7) K/uL Baso # (Auto) (0.0-0.1) K/uL Nucleated RBC % /100WBC Nucleated RBCs # K/uL D-Dimer, Quantitative (0.0-0.50) mg/L FEU Lactate 4.5 H* (0.20-2.00) mmol/L Sodium (136-148) mmol/L Potassium (3.5-5.1) mmol/L Chloride (98-107) mmol/L Carbon Dioxide (21.0-32.0) mmol/L BUN (7.0-18.0) mg/dL Creatinine (0.8-1.3) mg/dL Est Cr Clr Drug Dosing mL/min Estimated GFR (MDRD) ml/min Glucose (74-106) mg/dL Calcium (8.5-10.1) mg/dL Total Bilirubin (0.2-1.0) mg/dL AST (15-37) IU/L ALT (14-63) IU/L Alkaline Phosphatase (46-116) U/L Creatine Kinase 125 (26-308) U/L Troponin I (0.000-0.056) ng/mL Total Protein (6.4-8.2) g/dL Albumin (3.4-5.0) g/dL Globulin (2.6-4.0) g/dL Albumin/Globulin Ratio (0.9-1.6) Urine Color YELLOW Urine Appearance CLEAR Urine pH 5.5 (5.0-8.0) Ur Specific Clayton 1.015 (1.001-1.035) Urine Protein NEGATIVE (NEGATIVE) mg/dL Urine Glucose (UA) NEGATIVE (NEGATIVE) mg/dL Urine Ketones NEGATIVE (NEGATIVE) mg/dL Urine Occult Blood NEGATIVE (NEGATIVE) Urine Nitrite NEGATIVE (NEGATIVE) Urine Bilirubin NEGATIVE (NEGATIVE) Urine Urobilinogen 0.2 (<2.0) EU/dL Ur Leukocyte Esterase NEGATIVE (NEGATIVE) Meds: Medications Generic Name Dose Route Start Last Admin Trade Name Freq PRN Reason Stop Dose Admin Vancomycin HCl 1.5 gm/ Premix 300 mls @ 200 mls/hr 11/15/20 21:30 11/15/20 21:41 IV 11/15/20 22:59 200 mls/hr ONETIME ONE Administration Sodium Chloride 10 ml 11/15/20 19:45 11/15/20 19:56 Sodium Chloride 0.9% 10 Ml Syringe FLUSH 10 ml ASDIRECTED PRN Administration Keep Vein Open Sodium Chloride 2.5 ml 11/15/20 19:45 11/15/20 19:56 Sodium Chloride 0.9% 2.5 Ml Syringe FLUSH 2.5 ml ASDIRECTED PRN Administration Keep Vein Open Discontinued Medications Generic Name Dose Route Start Last Admin Trade Name Freq PRN Reason Stop Dose Admin Diazepam 10 mg 11/15/20 22:18 Diazepam 2 Mg Tab PO 11/15/20 22:19 ONETIME ONE Multivitamins/Minerals 10 ml/ 1,011.2 mls @ 999 mls/hr 11/15/20 19:46 11/15/20 20:48 Thiamine HCl 100 mg/ Folic IV 11/15/20 20:46 999 mls/hr Acid 1 mg/ Sodium Chloride ONETIME ONE Administration Vancomycin HCl 1.5 gm/ Sodium 500 mls @ 333 mls/hr 11/15/20 20:49 11/15/20 21:47 Chloride IV 11/15/20 22:19 Not Given NOW STA Meropenem 1 gm/ Sodium 100 mls @ 200 mls/hr 11/15/20 20:56 11/15/20 21:41 Chloride IV 11/15/20 21:25 200 mls/hr NOW STA Administration Sodium Chloride 1,000 mls @ 999 mls/hr 11/15/20 20:59 11/15/20 21:43 Normal Saline IV 11/15/20 21:59 999 mls/hr STAT ONE Administration Lorazepam 4 mg 11/15/20 19:45 11/15/20 19:55 Lorazepam 2 Mg/Ml Sdv IVPUSH 11/15/20 19:46 4 mg ONETIME ONE Administration Lorazepam 4 mg 11/15/20 20:21 11/15/20 20:26 Lorazepam 2 Mg/Ml Sdv IVPUSH 11/15/20 20:22 4 mg ONETIME ONE Administration Departure - Departure Time of Disposition: 22:37 Disposition: Refer to Observation Clinical Impression: Lactic acidosis Alcohol withdrawal Qualifiers: Complication of substance-induced condition: with unspecified complication Qualified Code(s): F10.239 - Alcohol dependence with withdrawal, unspecified Leukocytosis Qualifiers: Leukocytosis type: unspecified Qualified Code(s): D72.829 - Elevated white blood cell count, unspecified - Discharge Information Referrals: PCP,None [Primary Care Provider] - Sepsis Event Note (ED) - Evaluation Sepsis Screening Result: No Definite Risk - Focused Exam Vital Signs: Vital Signs Temp Pulse Resp BP Pulse Ox 11/15/20 21:56 116 H 18 136/90 99 11/15/20 19:11 97 F 137 H 26 H 210/106 H 97 - My Orders Last 24 Hours: My Active Orders 11/15/20 19:45 Cardiac Monitoring [RC] . DIRECTED EKG Documentation Completion [RC] STAT Sodium Chloride 0.9% [Saline Flush] 10 ml FLUSH ASDIRECTED PRN Sodium Chloride 0.9% [Saline Flush] 2.5 ml FLUSH ASDIRECTED PRN Saline Lock Insert [OM.PC] Stat 11/15/20 20:55 Blood Culture x2 Reflex Set [OM.PC] Stat 11/15/20 21:10 CULTURE BLOOD [BC] Stat 11/15/20 21:17 CULTURE BLOOD [BC] Stat 11/15/20 21:42 COVID-19/FLU A+B [MOLEC] Stat 11/15/20 22:16 Admission Status [Patient Status] [ADT] Stat - Assessment/Plan Last 24 Hours: My Active Orders 11/15/20 19:45 Cardiac Monitoring [RC] . DIRECTED EKG Documentation Completion [RC] STAT Sodium Chloride 0.9% [Saline Flush] 10 ml FLUSH ASDIRECTED PRN Sodium Chloride 0.9% [Saline Flush] 2.5 ml FLUSH ASDIRECTED PRN Saline Lock Insert [OM.PC] Stat 11/15/20 20:55 Blood Culture x2 Reflex Set [OM.PC] Stat 11/15/20 21:10 CULTURE BLOOD [BC] Stat 11/15/20 21:17 CULTURE BLOOD [BC] Stat 11/15/20 21:42 COVID-19/FLU A+B [MOLEC] Stat 11/15/20 22:16 Admission Status [Patient Status] [ADT] Stat
[2020-11-15] MEDS ORDERED: Albuterol/Ipratropium 3.0-0.5 MG/3 ML Neb Soln NEB PRN (22:38)
[2020-11-16] MEDS: LORazepam 2 MG/ML SDV IVPUSH PRN ×2 (01:01→02:40)
[2020-11-16] MEDS ORDERED: Meropenem 1 GM in Sodium Chloride 0.9% 100 ML IV SCH (05:00)
[2020-11-16 05:23] LABS: BLOOD UREA NITROGEN,BUN 10 mg/dL (7.0-18.0); CHLORIDE,CL 103 mmol/L (98-107); GLUCOSE RANDOM 89 mg/dL (74-106); POTASSIUM,K 3.3 mmol/L (3.5-5.1); SODIUM,NA 141 mmol/L (136-148)
[2020-11-16 05:30] LABS: CARBON DIOXIDE,CO2 26.3 mmol/L (21.0-32.0)
[2020-11-16] MEDS ORDERED: Diazepam 2 MG Tab PO SCH (06:00)
[2020-11-16] MEDS: Lactated Ringers 1,000 ML IV SCH ×2 (07:05)
--- NOTE | 2020-11-16 07:53 | PCM.HP.2 ---
H&P History of Present Illness - General Date of Service: 11/16/20 Admit Problem/Dx: Admission Diagnosis/Problem Admission Diagnosis/Problem Alcohol withdrawal syndrome Source of Information: Patient History Limitations: Reports: No Limitations - History of Present Illness Initial Comments - Free Text/Narative: This 50-year-old male with past medical history significant for alcohol abuse, IV drug abuse and recent incarceration presented to the ER last night in custody with complaints of chest pain as well as tremors that started. He reports that he has not drink alcohol since he was arrested which is around 6 days ago. He reports he drinks a significant amount of alcohol on a daily basis, close to a pint of hard alcohol, but he feels like this is not very much. He was counseled that this is a significant amount of alcohol not her body is likely responding to withdrawals from this. He denies this ever happening in the past. He also reports he recreational drug use such as methamphetamines. In the ER he did report he had used IV drug use prior to being arrested but to me he reported he had not used in a couple years. He reports the chest pain started couple days ago but became constant yesterday morning along with severe tremors. The pain radiates to his left arm it is sharp in nature and almost constant. He reports its not aggravated or alleviated by anything else. He denies any fevers chills or shortness of breath. He denies any abdominal pain black or bloody bowel movements and no urinary concerns. He denies any neurological deficits inc luding dizziness syncope or focal weakness to arms or legs. He does smoke 1-1/2 packs of cigarettes daily. He reports he does have a family history of his grandparents having heart attacks in their late 70s and 80s. Denies any early onset CAD that he is aware of. He denies any history of hypertension CAD or diabetes. In the ER he was noted to be significantly tachycardic upon arrival after a t otal of 8 mg IV Ativan heart rate improved as well as tremors. Leukocytosis noted at 14,000 hemoglobin 19 hematocrit 59. Lactic acid was elevated at 4.5, potassium 4.2. BUN 15 creatinine 1.8 troponin was negative CK 125 UA returned negative U tox was positive for methamphetamines. He was negative for Covid as well as influenza. In the ER he was treated with meropenem and Vanco for possible sepsis with unknown source of infection. He was treated with IV fluids and given Valium 10 mg prior to transfer to [facility] unit. Chest x-ray negative for any acute cardiopulmonary process. EKG showed sinus tachycardia with old septal ischemia no acute ST or T wave changes suggesting ACS. He will be admitted for chest pain and alcohol withdrawal. Patient remains in police custody. chest Pain Score (Numeric/FACES): 4 - Related Data Allergies/Adverse Reactions: Allergies Allergy/AdvReac Type Severity Reaction Status Date / Time Penicillins Allergy Hives Verified 11/15/20 19:16 Home Medications: Home Meds . [No Known Home Meds] 11/06/16 [History] Past Medical History - Past Health History Medical/Surgical History: Denies Medical/Surgical History HEENT History: Reports: Other (See Below) Other HEENT History: unable to assess Cardiovascular History: Reports: Other (See Below) Other Cardiovascular History: unable to assess Respiratory History: Reports: Other (See Below) Other Respiratory History: unable to assess Gastrointestinal History: Reports: Other (See Below) Other Gastrointestinal History: unable to assess Genitourinary History: Reports: Other (See Below) Other Genitourinary History: unable to assess Musculoskeletal History: Reports: Other (See Below) Other Musculoskeletal History: unable to assess Neurological History: Reports: Other (See Below) Other Neuro History: unable to assess Psychiatric History: Reports: Other (See Below) Other Psychiatric History: unable to assess Endocrine/Metabolic History: Reports: Other (See Below) Other Endocrine/Metabolic History: unable to assess Hematologic History: Reports: Other (See Below) Other Hematologic History: unable to assess Immunologic History: Reports: Other (See Below) Other Immunologic History: unable to assess Oncologic (Cancer) History: Reports: Other (See Below) Other Oncologic History: unable to assess Dermatologic History: Reports: Other (See Below) Other Dermatologic History: unable to assess - Infectious Disease History Infectious Disease History: Reports: Other (See Below) Other Infectious Disease History: unable to assess - Past Surgical History Head Surgeries/Procedures: Reports: Other (See Below) HEENT Surgical History: Reports: Other (See Below) Other HEENT Surgeries/Procedures: unable to assess Cardiovascular Surgical History: Reports: Other (See Below) Other Cardiovascular Surgeries/Procedures: unable to assess Respiratory Surgical History: Reports: Other (See Below) Other Respiratory Surgeries/Procedures: unable to assess GI Surgical History: Reports: Other (See Below) Other GI Surgeries/Procedures: unable to assess Male Surgical History: Reports: Other (See Below) Other Male Surgeries/Procedures: unable to assess Endocrine Surgical History: Reports: Other (See Below) Other Endocrine Surgeries/Procedures: unable to assess Neurological Surgical History: Reports: Other (See Below) Other Neurological Surgeries/Procedures: unable to assess Musculoskeletal Surgical History: Reports: Other (See Below) Other Musculoskeletal Surgeries/Procedures:: unable to assess Oncologic Surgical History: Reports: Other (See Below) Other Oncologic Surgeries/Procedures: unable to assess Dermatological Surgical History: Reports: Other (See Below) Social & Family History - Family History Family Medical History: No Pertinent Family History - Tobacco Use Tobacco Use Status *Q: Current Every Day Tobacco User Years of Tobacco use: 6 Packs/Tins Daily: 1 Used Tobacco, but Quit: No Second Hand Smoke Exposure: Yes - Caffeine Use Caffeine Use: Reports: Coffee Other Caffeine Use: unable to assess Caffeine Use Comment: every other day - Alcohol Use Days Per Week of Alcohol Use: 7 Number of Drinks Per Day: 6 Total Drinks Per Week: 42 Date of Last Drink: 11/08/20 - Recreational Drug Use Recreational Drug Use: Yes Drug Use in Last 12 Months: Yes Recreational Drug Type: Reports: Marijuana/Hashish, Methamphetamine H&P Review of Systems - Review of Systems: Review Of Systems: See Below General: Denies: Fever, Chills, Malaise HEENT: Reports: No Symptoms. Denies: Hearing Changes, Sinus Congestion, Vertigo Pulmonary: Reports: No Symptoms. Denies: Shortness of Breath Cardiovascular: Reports: Chest Pain (Left pectoral muscle and radiates to arm denies any trauma recently.). Denies: Palpitations, Dyspnea on Exertion, Edema, Lightheadedness, Syncope Gastrointestinal: Reports: No Symptoms. Denies: Abdominal Pain, Black Stool, Bloody Stool, Nausea, Vomiting Genitourinary: Reports: No Symptoms. Denies: Dysuria, Frequency Musculoskeletal: Reports: No Symptoms. Denies: Neck Pain Skin: Reports: No Symptoms Psychiatric: Reports: No Symptoms Neurological: Reports: No Symptoms Hematologic/Lymphatic: Reports: No Symptoms Immunologic: Reports: No Symptoms Exam - Exam Exam: See Below - Vital Signs Vital Signs: Last Vital Signs Temp 98.4 F 11/16/20 03:00 Pulse 98 03/18/21 03:00 Resp 14 11/16/20 03:00 BP 138/72 11/16/20 03:00 Pulse Ox 97 11/16/20 03:00 Weight: 96.026 kg - Exam General: Alert, Oriented, Cooperative HEENT: Conjunctiva Clear, Mucosa Moist & [place], Posterior Pharynx Clear Neck: Supple, Trachea Midline Lungs: Clear to Auscultation, Normal Respiratory Effort Cardiovascular: Regular Rate, Regular Rhythm, Other (Chest pain is reproduced upon palpation of left pectoral muscle.). No: Systolic Murmur, Rubs GI/Abdominal Exam: Normal Bowel Sounds, Soft, Non-Tender Extremities: Normal Inspection, Normal Range of Motion, Non-Tender, No Pedal Edema Neuro Extensive - Mental Status: Alert, Oriented x3 Neuro Extensive - Motor, Sensory, Reflexes: CN II-XII Intact Psychiatric: Alert, Normal Affect, Normal Mood - Patient Data Lab Results Last 24 hrs: Laboratory Results - last 24 hr 11/15/20 11/15/20 11/15/20 Range/Units 19:35 19:35 19:35 WBC 14.14 H (4.0-11.0) K/uL RBC 6.71 H (4.50-5.90) M/uL Hgb 19.9 H (13.0-17.0) g/dL Hct 59.3 H (38.0-50.0) % MCV 88.4 (80.0-98.0) fL MCH 29.7 (27.0-32.0) pg MCHC 33.6 (31.0-37.0) g/dL RDW Std Deviation 45.7 (28.0-62.0) fl RDW Coeff of Joaquín 14 (11.0-15.0) % Plt Count 184 (150-400) K/uL MPV 11.10 (7.40-12.00) fL Neut % (Auto) 83.4 H (48.0-80.0) % Lymph % (Auto) 12.1 L (16.0-40.0) % [place] % (Auto) 4.1 (0.0-15.0) % Eos % (Auto) 0.2 (0.0-7.0) % Baso % (Auto) 0.2 (0.0-1.5) % Neut # (Auto) 11.8 H (1.4-5.7) K/uL Lymph # (Auto) 1.7 (0.6-2.4) K/uL [place] # (Auto) 0.6 (0.0-0.8) K/uL Eos # (Auto) 0.0 (0.0-0.7) K/uL Baso # (Auto) 0.0 (0.0-0.1) K/uL Nucleated RBC % 0.0 /100WBC Nucleated RBCs # 0 K/uL D-Dimer, Quantitative 0.36 (0.0-0.50) mg/L FEU Lactate (0.20-2.00) mmol/L Sodium 137 (136-148) mmol/L Potassium 4.2 (3.5-5.1) mmol/L Chloride 98 (98-107) mmol/L Carbon Dioxide 21.5 (21.0-32.0) mmol/L BUN 15 (7.0-18.0) mg/dL Creatinine 1.8 H (0.8-1.3) mg/dL Est Cr Clr Drug Dosing 37.13 mL/min Estimated GFR (MDRD) 40.5 ml/min Glucose 158 H (74-106) mg/dL Calcium 9.4 (8.5-10.1) mg/dL Phosphorus (2.6-4.7) mg/dL Magnesium (1.8-2.4) mg/dL Total Bilirubin 0.6 (0.2-1.0) mg/dL AST 27 (15-37) IU/L ALT 50 (14-63) IU/L Alkaline Phosphatase 74 (46-116) U/L Creatine Kinase (26-308) U/L Troponin I < 0.050 (0.000-0.056) ng/mL Total Protein 8.9 H (6.4-8.2) g/dL Albumin 4.3 (3.4-5.0) g/dL Globulin 4.6 H (2.6-4.0) g/dL Albumin/Globulin Ratio 0.9 (0.9-1.6) Urine Color Urine Appearance Urine pH (5.0-8.0) Ur Specific [place] (1.001-1.035) Urine Protein (NEGATIVE) mg/dL Urine Glucose (UA) (NEGATIVE) mg/dL Urine Ketones (NEGATIVE) mg/dL Urine Occult Blood (NEGATIVE) Urine Nitrite (NEGATIVE) Urine Bilirubin (NEGATIVE) Urine Urobilinogen (<2.0) EU/dL Ur Leukocyte Esterase (NEGATIVE) Urine Opiates Screen (NEGATIVE) Ur Oxycodone Screen (NEGATIVE) Urine Methadone Screen (NEGATIVE) Ur Barbiturates Screen (NEGATIVE) Ur Phencyclidine Scrn (NEGATIVE) Ur Amphetamine Screen (NEGATIVE) U Methamphetamines Scrn (NEGATIVE) U Benzodiazepines Scrn (NEGATIVE) U Cocaine Metab Screen (NEGATIVE) U Marijuana (THC) Screen (NEGATIVE) Influenza Type A RNA (NEGATIVE) Influenza Type B RNA (NEGATIVE) SARS-CoV-2 RNA (LO) (NEGATIVE) 11/15/20 11/15/20 11/15/20 Range/Units 20:25 20:25 21:35 WBC (4.0-11.0) K/uL RBC (4.50-5.90) M/uL Hgb (13.0-17.0) g/dL Hct (38.0-50.0) % MCV (80.0-98.0) fL MCH (27.0-32.0) pg MCHC (31.0-37.0) g/dL RDW Std Deviation (28.0-62.0) fl RDW Coeff of Joaquín (11.0-15.0) % Plt Count (150-400) K/uL MPV (7.40-12.00) fL Neut % (Auto) (48.0-80.0) % Lymph % (Auto) (16.0-40.0) % [place] % (Auto) (0.0-15.0) % Eos % (Auto) (0.0-7.0) % Baso % (Auto) (0.0-1.5) % Neut # (Auto) (1.4-5.7) K/uL Lymph # (Auto) (0.6-2.4) K/uL [place] # (Auto) (0.0-0.8) K/uL Eos # (Auto) (0.0-0.7) K/uL Baso # (Auto) (0.0-0.1) K/uL Nucleated RBC % /100WBC Nucleated RBCs # K/uL D-Dimer, Quantitative (0.0-0.50) mg/L FEU Lactate 4.5 H* (0.20-2.00) mmol/L Sodium (136-148) mmol/L Potassium (3.5-5.1) mmol/L Chloride (98-107) mmol/L Carbon Dioxide (21.0-32.0) mmol/L BUN (7.0-18.0) mg/dL Creatinine (0.8-1.3) mg/dL Est Cr Clr Drug Dosing mL/min Estimated GFR (MDRD) ml/min Glucose (74-106) mg/dL Calcium (8.5-10.1) mg/dL Phosphorus (2.6-4.7) mg/dL Magnesium (1.8-2.4) mg/dL Total Bilirubin (0.2-1.0) mg/dL AST (15-37) IU/L ALT (14-63) IU/L Alkaline Phosphatase (46-116) U/L Creatine Kinase 125 (26-308) U/L Troponin I (0.000-0.056) ng/mL Total Protein (6.4-8.2) g/dL Albumin (3.4-5.0) g/dL Globulin (2.6-4.0) g/dL Albumin/Globulin Ratio (0.9-1.6) Urine Color YELLOW Urine Appearance CLEAR Urine pH 5.5 (5.0-8.0) Ur Specific [place] 1.015 (1.001-1.035) Urine Protein NEGATIVE (NEGATIVE) mg/dL Urine Glucose (UA) NEGATIVE (NEGATIVE) mg/dL Urine Ketones NEGATIVE (NEGATIVE) mg/dL Urine Occult Blood NEGATIVE (NEGATIVE) Urine Nitrite NEGATIVE (NEGATIVE) Urine Bilirubin NEGATIVE (NEGATIVE) Urine Urobilinogen 0.2 (<2.0) EU/dL Ur Leukocyte Esterase NEGATIVE (NEGATIVE) Urine Opiates Screen (NEGATIVE) Ur Oxycodone Screen (NEGATIVE) Urine Methadone Screen (NEGATIVE) Ur Barbiturates Screen (NEGATIVE) Ur Phencyclidine Scrn (NEGATIVE) Ur Amphetamine Screen (NEGATIVE) U Methamphetamines Scrn (NEGATIVE) U Benzodiazepines Scrn (NEGATIVE) U Cocaine Metab Screen (NEGATIVE) U Marijuana (THC) Screen (NEGATIVE) Influenza Type A RNA (NEGATIVE) Influenza Type B RNA (NEGATIVE) SARS-CoV-2 RNA (LO) (NEGATIVE) 11/15/20 11/15/20 11/16/20 Range/Units 21:42 21:45 00:28 WBC (4.0-11.0) K/uL RBC (4.50-5.90) M/uL Hgb (13.0-17.0) g/dL Hct (38.0-50.0) % MCV (80.0-98.0) fL MCH (27.0-32.0) pg MCHC (31.0-37.0) g/dL RDW Std Deviation (28.0-62.0) fl RDW Coeff of Joaquín (11.0-15.0) % Plt Count (150-400) K/uL MPV (7.40-12.00) fL Neut % (Auto) (48.0-80.0) % Lymph % (Auto) (16.0-40.0) % [place] % (Auto) (0.0-15.0) % Eos % (Auto) (0.0-7.0) % Baso % (Auto) (0.0-1.5) % Neut # (Auto) (1.4-5.7) K/uL Lymph # (Auto) (0.6-2.4) K/uL [place] # (Auto) (0.0-0.8) K/uL Eos # (Auto) (0.0-0.7) K/uL Baso # (Auto) (0.0-0.1) K/uL Nucleated RBC % /100WBC Nucleated RBCs # K/uL D-Dimer, Quantitative (0.0-0.50) mg/L FEU Lactate 2.2 H* (0.20-2.00) mmol/L Sodium (136-148) mmol/L Potassium (3.5-5.1) mmol/L Chloride (98-107) mmol/L Carbon Dioxide (21.0-32.0) mmol/L BUN (7.0-18.0) mg/dL Creatinine (0.8-1.3) mg/dL Est Cr Clr Drug Dosing mL/min Estimated GFR (MDRD) ml/min Glucose (74-106) mg/dL Calcium (8.5-10.1) mg/dL Phosphorus (2.6-4.7) mg/dL Magnesium (1.8-2.4) mg/dL Total Bilirubin (0.2-1.0) mg/dL AST (15-37) IU/L ALT (14-63) IU/L Alkaline Phosphatase (46-116) U/L Creatine Kinase (26-308) U/L Troponin I (0.000-0.056) ng/mL Total Protein (6.4-8.2) g/dL Albumin (3.4-5.0) g/dL Globulin (2.6-4.0) g/dL Albumin/Globulin Ratio (0.9-1.6) Urine Color Urine Appearance Urine pH (5.0-8.0) Ur Specific [place] (1.001-1.035) Urine Protein (NEGATIVE) mg/dL Urine Glucose (UA) (NEGATIVE) mg/dL Urine Ketones (NEGATIVE) mg/dL Urine Occult Blood (NEGATIVE) Urine Nitrite (NEGATIVE) Urine Bilirubin (NEGATIVE) Urine Urobilinogen (<2.0) EU/dL Ur Leukocyte Esterase (NEGATIVE) Urine Opiates Screen NEGATIVE (NEGATIVE) Ur Oxycodone Screen NEGATIVE (NEGATIVE) Urine Methadone Screen NEGATIVE (NEGATIVE) Ur Barbiturates Screen NEGATIVE (NEGATIVE) Ur Phencyclidine Scrn NEGATIVE (NEGATIVE) Ur Amphetamine Screen NEGATIVE (NEGATIVE) U Methamphetamines Scrn POSITIVE (NEGATIVE) U Benzodiazepines Scrn NEGATIVE (NEGATIVE) U Cocaine Metab Screen NEGATIVE (NEGATIVE) U Marijuana (THC) Screen NEGATIVE (NEGATIVE) Influenza Type A RNA NEGATIVE (NEGATIVE) Influenza Type B RNA NEGATIVE (NEGATIVE) SARS-CoV-2 RNA (LO) NEGATIVE (NEGATIVE) 11/16/20 11/16/20 11/16/20 Range/Units 05:00 05:00 05:00 WBC 11.30 H (4.0-11.0) K/uL RBC 6.17 H (4.50-5.90) M/uL Hgb 18.0 H (13.0-17.0) g/dL Hct 54.0 H (38.0-50.0) % MCV 87.5 (80.0-98.0) fL MCH 29.2 (27.0-32.0) pg MCHC 33.3 (31.0-37.0) g/dL RDW Std Deviation 45.8 (28.0-62.0) fl RDW Coeff of Joaquín 14 (11.0-15.0) % Plt Count 170 (150-400) K/uL MPV 11.40 (7.40-12.00) fL Neut % (Auto) 71.1 (48.0-80.0) % Lymph % (Auto) 20.2 (16.0-40.0) % [place] % (Auto) 8.1 (0.0-15.0) % Eos % (Auto) 0.4 (0.0-7.0) % Baso % (Auto) 0.2 (0.0-1.5) % Neut # (Auto) 8.0 H (1.4-5.7) K/uL Lymph # (Auto) 2.3 (0.6-2.4) K/uL [place] # (Auto) 0.9 H (0.0-0.8) K/uL Eos # (Auto) 0.0 (0.0-0.7) K/uL Baso # (Auto) 0.0 (0.0-0.1) K/uL Nucleated RBC % 0.0 /100WBC Nucleated RBCs # 0 K/uL D-Dimer, Quantitative (0.0-0.50) mg/L FEU Lactate 1.5 (0.20-2.00) mmol/L Sodium 141 (136-148) mmol/L Potassium 3.3 L (3.5-5.1) mmol/L Chloride 103 (98-107) mmol/L Carbon Dioxide 26.3 (21.0-32.0) mmol/L BUN 10 (7.0-18.0) mg/dL Creatinine 1.1 (0.8-1.3) mg/dL Est Cr Clr Drug Dosing 92.81 mL/min Estimated GFR (MDRD) > 60.0 ml/min Glucose 89 (74-106) mg/dL Calcium 8.0 L (8.5-10.1) mg/dL Phosphorus 2.7 (2.6-4.7) mg/dL Magnesium 2.1 (1.8-2.4) mg/dL Total Bilirubin (0.2-1.0) mg/dL AST (15-37) IU/L ALT (14-63) IU/L Alkaline Phosphatase (46-116) U/L Creatine Kinase (26-308) U/L Troponin I (0.000-0.056) ng/mL Total Protein (6.4-8.2) g/dL Albumin (3.4-5.0) g/dL Globulin (2.6-4.0) g/dL Albumin/Globulin Ratio (0.9-1.6) Urine Color Urine Appearance Urine pH (5.0-8.0) Ur Specific [place] (1.001-1.035) Urine Protein (NEGATIVE) mg/dL Urine Glucose (UA) (NEGATIVE) mg/dL Urine Ketones (NEGATIVE) mg/dL Urine Occult Blood (NEGATIVE) Urine Nitrite (NEGATIVE) Urine Bilirubin (NEGATIVE) Urine Urobilinogen (<2.0) EU/dL Ur Leukocyte Esterase (NEGATIVE) Urine Opiates Screen (NEGATIVE) Ur Oxycodone Screen (NEGATIVE) Urine Methadone Screen (NEGATIVE) Ur Barbiturates Screen (NEGATIVE) Ur Phencyclidine Scrn (NEGATIVE) Ur Amphetamine Screen (NEGATIVE) U Methamphetamines Scrn (NEGATIVE) U Benzodiazepines Scrn (NEGATIVE) U Cocaine Metab Screen (NEGATIVE) U Marijuana (THC) Screen (NEGATIVE) Influenza Type A RNA (NEGATIVE) Influenza Type B RNA (NEGATIVE) SARS-CoV-2 RNA (LO) (NEGATIVE) Result Diagrams: 11/16/20 05:00 11/16/20 05:00 Sepsis Event Note - Evaluation Sepsis Screening Result: No Definite Risk - Focused Exam Vital Signs: Vital Signs Temp Pulse Resp BP Pulse Ox Pulse Ox 11/16/20 03:00 98.4 F 98 14 138/72 97 11/16/20 00:22 96 11/15/20 23:23 98.1 F 78 16 139/85 96 11/15/20 21:56 116 H 18 136/90 99 - Problem List (1) Chest pain SNOMED Code(s): 31447668 ICD Code: R07.9 - CHEST PAIN, UNSPECIFIED Status: Acute Current Visit: Yes (2) Alcohol withdrawal SNOMED Code(s): 059768430 ICD Code: F10.239 - ALCOHOL DEPENDENCE WITH WITHDRAWAL, UNSPECIFIED Status: Acute Current Visit: Yes Qualifiers: Complication of substance-induced condition: with unspecified complication Qualified Code(s): F10.239 - Alcohol dependence with withdrawal, unspecified (3) Lactic acidosis SNOMED Code(s): 00574537 ICD Code: E87.2 - ACIDOSIS Status: Acute Current Visit: Yes (4) Leukocytosis SNOMED Code(s): 630735879, 019055619 ICD Code: D72.829 - ELEVATED WHITE BLOOD CELL COUNT, UNSPECIFIED Status: Acute Current Visit: Yes Qualifiers: Leukocytosis type: unspecified Qualified Code(s): D72.829 - Elevated white blood cell count, unspecified (5) Drug abuse SNOMED Code(s): 68026577 ICD Code: F19.10 - OTHER PSYCHOACTIVE SUBSTANCE ABUSE, UNCOMPLICATED Status: Acute Current Visit: No Problem List Initiated/Reviewed/Updated: Yes Orders Last 24hrs: Active Orders 24 hr Category Date Time Status Admission Status [Patient Status] [ADT] Stat ADT 11/15/20 22:16 Active Ambulate [RC] ASDIRECTED Care 11/15/20 22:38 Active Antiembolic Devices [RC] PER UNIT ROUTINE Care 11/15/20 22:40 Active CIWAA Assessment [RC] ASDIRECTED Care 11/15/20 22:43 Active Cardiac Monitoring [RC] Q8H Care 11/15/20 19:45 Active EKG Documentation Completion [RC] STAT Care 11/15/20 19:45 Active Oxygen Therapy [RC] PRN Care 11/15/20 22:39 Active RT Aerosol Therapy [RC] ASDIRECTED Care 11/15/20 22:40 Active Telemetry Monitoring [Cardiac Monitoring] [RC] . Care 11/15/20 23:28 Active DIRECTED VTE/DVT Education [RC] PER UNIT ROUTINE Care 11/15/20 22:39 Active Vital Signs [RC] Q4H Care 11/15/20 22:39 Active Clear Liquid Diet [DIET] Diet 11/16/20 Breakfast Active CULTURE BLOOD [BC] Stat Lab 11/15/20 21:10 Received CULTURE BLOOD [BC] Stat Lab 11/15/20 21:17 Received VANCOMYCIN TROUGH [CHEM] Timed Lab 11/17/20 08:30 Ordered Albuterol/Ipratropium [DuoNeb 3.0-0.5 MG/3 ML] Med 11/15/20 22:38 Active 3 ml NEB Q4HRRT PRN Enoxaparin [Lovenox] Med 11/16/20 09:00 Active 40 mg SUBCUT Q24H Folic Acid Med 11/16/20 09:00 Active 1 mg PO DAILY LORazepam [Ativan] Med 11/15/20 22:41 Active See Protocol IVPUSH Q4H PRN Lactated Ringers [Ringers, Lactated] 1,000 ml Med 11/15/20 23:00 Active IV ASDIRECTED Meropenem Premix [Meropenem in NS 1 GM/50 ML] 1 gm Med 11/16/20 13:30 Active Premix Bag 1 bag IV Q8H Pharmacy to Dose - Vancomycin Med 11/15/20 23:00 Active 1 dose .XX ASDIRECTED Sodium Chloride 0.9% [Saline Flush] Med 11/15/20 19:45 Active 10 ml FLUSH ASDIRECTED PRN Sodium Chloride 0.9% [Saline Flush] Med 11/15/20 19:45 Active 2.5 ml FLUSH ASDIRECTED PRN Thiamine [Vitamin B-1] Med 11/16/20 21:00 Active 100 mg PO BEDTIME VANCOmycin 1.5 GM/300 ML 1.5 gm Med 11/16/20 09:00 Active Premix Bag 1 bag IV Q12H diazePAM [Valium.] Med 11/16/20 14:00 Active 5 mg PO TID Blood Culture x2 Reflex Set [OM.PC] Stat Oth 11/15/20 20:55 Ordered Saline Lock Insert [OM.PC] Stat Oth 11/15/20 19:45 Ordered Sequential Compression Device [OM.PC] Per Unit Routine Oth 11/15/20 22:39 Ordered Medication Orders Albuterol/Ipratropium (Albuterol/Ipratropium 3.0-0.5 Mg/3 Ml Neb Soln) 3 ml NEB Q4HRRT PRN PRN Reason: Shortness Of Breath/wheezing Diazepam (Diazepam 5 Mg Tab) 5 mg PO TID [place] Enoxaparin Sodium (Enoxaparin 40 Mg/0.4 Ml Syringe) 40 mg SUBCUT Q24H [place] Folic Acid (Folic Acid 1 Mg Tab) 1 mg PO DAILY [place] Lactated Ringer's (Ringers, Lactated) 1,000 mls @ 150 mls/hr IV ASDIRECTED [place] Last Admin: 11/16/20 07:05 Dose: 150 mls/hr Documented by: Infusion: 11/16/20 06:41 Dose: 150 mls/hr Documented by: Admin: 11/16/20 00:00 Dose: 150 mls/hr Documented by: VAHID Vancomycin HCl 1.5 gm/ Premix 300 mls @ 200 mls/hr IV Q12H [place] Meropenem/Sodium Chloride 1 gm (/ Premix) 50 mls @ 100 mls/hr IV Q8H [place] Lorazepam (Lorazepam 2 Mg/Ml Sdv) 0 mg IVPUSH Q4H PRN; Protocol PRN Reason: Withdrawal Symptoms Last Admin: 11/16/20 02:40 Dose: 2 mg Documented by: Admin: 11/16/20 01:01 Dose: 2 mg Documented by: VAHID Sodium Chloride (Sodium Chloride 0.9% 10 Ml Syringe) 10 ml FLUSH ASDIRECTED PRN PRN Reason: Keep Vein Open Last Admin: 11/15/20 19:56 Dose: 10 ml Documented by: PETROS Sodium Chloride (Sodium Chloride 0.9% 2.5 Ml Syringe) 2.5 ml FLUSH ASDIRECTED PRN PRN Reason: Keep Vein Open Last Admin: 11/15/20 19:56 Dose: 2.5 ml Documented by: PETROS Thiamine HCl (Thiamine 100 Mg Tab) 100 mg PO BEDTIME [place] Vancomycin HCl (Pharmacy To Dose - Vancomycin) 1 dose .XX ASDIRECTED [facility] Assessment/Plan Comment:: This 50-year-old male admitted with alcohol abuse and current withdrawal along with chest pain. 1. Alcohol withdrawal -Continue Valium 5 mg 3 times daily -Ativan per CIWAA score protocol -Seizure precautions -Folic acid and thiamine supplementation -Counseled on sobriety 2. Chest pain -We will trend 2 more troponins today -Has been monitored on telemetry with no significant EKG changes. 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 3. Leukocytosis and lactic acidosis -Unclear source of sepsis with no clear infection -Blood cultures pending -Concern due to IV drug use history -Consider echo to evaluate for endocarditis -Continue vancomycin at this time, will discontinue meropenem -Lactic acid resolved with IV fluid administration -Continue LR 150 mL/h VTE prophylaxis: Lovenox GI prophylaxis: Protonix CODE STATUS: Full code Dispo: 2 to 3 days pending improvement. 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 Patient is shackled to bed.
[2020-11-16] MEDS ORDERED: Ondansetron 4 MG/2 ML SDV IVPUSH PRN (07:55)
[2020-11-16] MEDS ORDERED: Acetaminophen 325 MG Tab PO PRN (07:55)
[2020-11-16] MEDS ORDERED: Sodium Chloride 0.9% 2.5 ML Syringe FLUSH PRN (07:55)
[2020-11-16] MEDS ORDERED: Pantoprazole 40 MG in Sodium Chloride 0.9% 10 ML IV SCH (08:00)
[2020-11-16 08:25] LABS: HEMOGLOBIN A1C 5.5 %
[2020-11-16] MEDS ORDERED: Folic Acid 1 MG Tab PO SCH (09:00)
[2020-11-16] MEDS ORDERED: VANCOmycin 1.5 GM/300 ML 1.5 GM in Premix Bag 1 BAG IV SCH (09:00)
[2020-11-16] MEDS ORDERED: Enoxaparin 40 MG/0.4 ML Syringe SUBCUT SCH (09:00)
[2020-11-16] MEDS ORDERED: Alum Hydrox/Mag Hydrox/Simeth 15 ML, Lidocaine 2% 5 ML PO ONE ×2 (09:30)
[2020-11-16 09:57] VITALS: BP 129/84; PULSE 83
[2020-11-16] MEDS ORDERED: Potassium Chloride 20 MEQ Tab.ER PO ONE (11:30)
[2020-11-16] MEDS ORDERED: Diazepam 5 MG Tab PO ONE (12:30)
[2020-11-16] MEDS ORDERED: Meropenem Premix 1 GM in Premix Bag 1 BAG IV SCH (13:30)
[2020-11-16] MEDS ORDERED: Diazepam 5 MG Tab PO SCH ×2 (14:00→21:00)
[2020-11-16] MEDS ORDERED: Thiamine 100 MG Tab PO SCH (21:00)
== END 2020-11-16 12:30 | disposition left against medical advice (07) ==
LOC: MW.ED 19:06 → UNDOADMOB 22:16 → MW.MS 22:16
PROVIDERS: ADMIT Student in an Organized Health Care Education/Training Program; ATTEND Student in an Organized Health Care Education/Training Program
DX: F10.239 Alcohol dependence with withdrawal, unspecified (principal); R07.9 Chest pain, unspecified; E87.2 Acidosis; D72.829 Elevated white blood cell count, unspecified; I10 Essential (primary) hypertension; F17.210 Nicotine dependence, cigarettes, uncomplicated; F19.10 Other psychoactive substance abuse, uncomplicated; Z20.822 Contact with and (suspected) exposure to COVID-19; Z88.0 Allergy status to penicillin; Z53.29 Procedure and treatment not carried out because of patient's decision for other reasons
CPT/HCPCS: 0240U; 36415; 71045; 80048; 80053; 80061; 80305; 81003; 82550; 83036; 83605; 83735; 84100; 84439; 84443; 84484; 85025; 85379; 87040; A9270; C9113; J1650; J2060; J2185; J3370; J3411; J7030; J7120; 93010; 99219; 99284

== ENCOUNTER 2020-11-20 20:23 | Emergency (ER) | payer OTHER ==
[2020-11-20] MEDS ORDERED: Sodium Chloride 0.9% 2.5 ML Syringe FLUSH PRN (20:48)
[2020-11-20] MEDS ORDERED: Sodium Chloride 0.9% 1,000 ML IV ONE (20:48)
[2020-11-20] MEDS ORDERED: Sodium Chloride 0.9% 10 ML Syringe FLUSH PRN (20:48)
--- NOTE | 2020-11-20 21:15 | EDM.PDOC ---
ED HPI GENERAL MEDICAL PROBLEM - General Chief Complaint: Gastrointestinal Problem Stated Complaint: ULCERS Time Seen by Provider: 11/20/20 20:25 - History of Present Illness INITIAL COMMENTS - FREE TEXT/NARRATIVE: HISTORY AND PHYSICAL: History of present illness: This is a 50-year-old gentleman with no significant past medical history who presents ER today secondary to pain and discomfort around his rectal region and his bilateral flanks that been going on for approximately 1 to 2 days. Patient was recently admitted here to [facility] Emergency Department for evaluation of possible withdrawal and chest pain symptoms. Patient signed out AGAINST MEDICAL ADVICE at that time. Patient presents back to the ED after being evaluated in the assisted clinic for rectal bleeding and discomfort around his rectum and back region. Patient denies any other symptomatology at this time. Patient has any recent fevers, shakes, chills, nausea, vomiting, diarrhea, dysuria, frequency, urgency. Patient does report that he has noticed some blood in his urine as well. Patient has any cough cold or rhinorrhea. Patient reports he has been tolerating p.o. solids and liquids well. Review of systems: As per history of present illness and below otherwise all systems reviewed and negative. Past medical history: As per history of present illness and as reviewed below otherwise noncontributory. Surgical history: As per history of present illness and as reviewed below otherwise noncontributory. Social history: No reported history of drug or alcohol abuse. Family history: As per history of present illness and as reviewed below otherwise noncontributory. Physical exam: This patient was seen and evaluated during the 2019 SARS-CoV-2 novel coronavirus pandemic period. Community viral transmission is ongoing at time of this encounter and the emergency department is operating under pandemic response procedures. Constitutional: Patient is oriented to person, place, and time. Appears well- developed and well-nourished. No distress. HEENT: Moist mucous membranes Head: Normocephalic and atraumatic Eyes: Right eye exhibits no discharge. Left eye exhibits no discharge. No scleral icterus Neck: Normal range of motion. No tracheal deviation present. Cardiovascular: Normal rate and regular rhythm. Pulmonary: Effort normal, no respiratory distress. Abd: Soft, nondistended, no rebound/guarding, no psoas or obturator signs, no tenderness at Mcberney's point, no Youssef's sign. Pt does not present with an exam that would be consistent with an acute surgical abdomen at this time, minimal tenderness palpation to the suprapubic region. Patient has tenderness to palpation to his lower back bilaterally. Patient has no point C, T, L-spine tenderness to palpation. Rectal exam: Patient with no stool in the vault. Patient does have blood identified during rectal exam. On initial evaluation there is no evidence of any bleeding however after rectal examination, a small amount of bleeding was identified against a external hemorrhoid at approximately the 10 o'clock position. This appears to be most likely cause of his rectal bleeding at this time. Musculoskeletal: Normal range of motion Neurologic: Alert and oriented to person, place and time. Skin: [place], warm and dry. Psychiatric: Normal mood and affect. Behavior is normal. Judgment and thought content normal. Nursing note and vital signs have been reviewed Diagnostics: CBC, CMP, lipase, PT, PTT, urinalysis. Therapeutics: NSS x1 L Assessment and plan: This is a 50-year-old gentleman who presents ER today secondary to rectal discomfort and bleeding. Patient denies any history of hemorrhoids in the past or rectal fissures. Patient denies any history of alcohol use disorder. Patient denies any rectal trauma or anal sex. Patient's exam does reveal an external bleeding hemorrhoid. Remainder the patient's exam appears to be aligned without any evidence of an acute surgical abdomen at this time. Will obtain labs and reassess the patient at that time. 10:10 PM: Patient's labs are all within normal limits. Patient is clinically hemodynamically stable. Etiology of the patient's rectal bleeding is most likely secondary to his hemorrhoid that was identified during exam. Etiology of the discomfort is unclear however patient does not present with any signs or symptoms of an acute surgical abdomen at this time. Patient's labs are all within normal limits. Patient be stable for discharge home with continued outpatient evaluation. The patient should continue to have pain and discomfort he should be referred through the gel to a GI specialist for further evaluation. Reassessment at the time of disposition demonstrates that the patient is in no acute distress. The patient has remained stable throughout the entire ED visit and is without objective evidence for acute process requiring urgent intervention or hospitalization. The patient is stable for discharge, counseling is provided as documented above, discussed symptomatic treatment and specific conditions for return. I have spoken with the patient/caregiver and discussed todays findings, in addition to providing specific details for the plan of care. Questions are answered and there is agreement with the plan. Definitive disposition and diagnosis as appropriate pending reevaluation and review of above. Abdomen Pain Score (Numeric/FACES): 7 - Related Data Allergies Allergy/AdvReac Type Severity Reaction Status Date / Time Penicillins Allergy Hives Verified 11/20/20 20:35 Home Meds: Home Meds Acetaminophen 500 mg PO Q6HR PRN #30 tablet 11/20/20 [Rx] Past Medical History - Past Health History Medical/Surgical History: Denies Medical/Surgical History HEENT History: Reports: None, Other (See Below) Other HEENT History: unable to assess Cardiovascular History: Reports: None Other Cardiovascular History: unable to assess Respiratory History: Reports: None Other Respiratory History: unable to assess Gastrointestinal History: Reports: None Other Gastrointestinal History: unable to assess Genitourinary History: Reports: None Other Genitourinary History: unable to assess Musculoskeletal History: Reports: None Other Musculoskeletal History: unable to assess Neurological History: Reports: None Other Neuro History: unable to assess Psychiatric History: Reports: None Other Psychiatric History: unable to assess Endocrine/Metabolic History: Reports: None Other Endocrine/Metabolic History: unable to assess Insulin Pump Model and Conductor Pullman: None Hematologic History: Reports: None Other Hematologic History: unable to assess Immunologic History: Reports: None Other Immunologic History: unable to assess Oncologic (Cancer) History: Reports: None Other Oncologic History: unable to assess Dermatologic History: Reports: None Other Dermatologic History: unable to assess - Infectious Disease History Infectious Disease History: Reports: None Other Infectious Disease History: unable to assess - Past Surgical History Head Surgeries/Procedures: Reports: None HEENT Surgical History: Reports: None, Other (See Below) Social & Family History - Family History Family Medical History: No Pertinent Family History - Caffeine Use Caffeine Use: Reports: None Other Caffeine Use: unable to assess Caffeine Use Comment: every other day - Recreational Drug Use Recreational Drug Use: Yes Drug Use in Last 12 Months: Yes Recreational Drug Type: Reports: Marijuana/Hashish, Methamphetamine ED ROS GENERAL - Review of Systems Review Of Systems: See Below ED EXAM, GENERAL - Physical Exam Exam: See Below Course - Vital Signs Last Recorded V/S: Last Vital Signs Temp 97.7 F 11/20/20 20:35 Pulse 80 11/20/20 20:35 Resp 18 11/20/20 20:35 BP 133/73 11/20/20 20:35 Pulse Ox 97 11/20/20 20:35 - Orders/Labs/Meds Orders: Active Orders 24 hr Category Date Time Status Sodium Chloride 0.9% [Saline Flush] Med 11/20/20 20:48 Active 10 ml FLUSH ASDIRECTED PRN Sodium Chloride 0.9% [Saline Flush] Med 11/20/20 20:48 Active 2.5 ml FLUSH ASDIRECTED PRN Saline Lock Insert [OM.PC] Stat Oth 11/20/20 20:49 Ordered Medication Orders Sodium Chloride (Sodium Chloride 0.9% 10 Ml Syringe) 10 ml FLUSH ASDIRECTED PRN PRN Reason: Keep Vein Open Last Admin: 11/20/20 20:59 Dose: 10 ml Documented by: DIA Sodium Chloride (Sodium Chloride 0.9% 2.5 Ml Syringe) 2.5 ml FLUSH ASDIRECTED PRN PRN Reason: Keep Vein Open Last Admin: 11/20/20 20:59 Dose: 2.5 ml Documented by: DIA Labs: Laboratory Tests 11/20/20 11/20/20 11/20/20 Range/Units 21:00 21:00 21:00 WBC 8.72 (4.0-11.0) K/uL RBC 6.03 H (4.50-5.90) M/uL Hgb 17.9 H (13.0-17.0) g/dL Hct 52.7 H (38.0-50.0) % MCV 87.4 (80.0-98.0) fL MCH 29.7 (27.0-32.0) pg MCHC 34.0 (31.0-37.0) g/dL RDW Std Deviation 44.9 (28.0-62.0) fl RDW Coeff of Joaquín 14 (11.0-15.0) % Plt Count 174 (150-400) K/uL MPV 11.30 (7.40-12.00) fL Neut % (Auto) 61.9 (48.0-80.0) % Lymph % (Auto) 28.4 (16.0-40.0) % [place] % (Auto) 7.5 (0.0-15.0) % Eos % (Auto) 1.6 (0.0-7.0) % Baso % (Auto) 0.6 (0.0-1.5) % Neut # (Auto) 5.4 (1.4-5.7) K/uL Lymph # (Auto) 2.5 H (0.6-2.4) K/uL [place] # (Auto) 0.7 (0.0-0.8) K/uL Eos # (Auto) 0.1 (0.0-0.7) K/uL Baso # (Auto) 0.1 (0.0-0.1) K/uL Nucleated RBC % 0.0 /100WBC Nucleated RBCs # 0 K/uL INR 1.05 APTT 27.3 (18.6-31.3) SEC Sodium 137 (136-148) mmol/L Potassium 3.8 (3.5-5.1) mmol/L Chloride 102 (98-107) mmol/L Carbon Dioxide 29.2 (21.0-32.0) mmol/L BUN 12 (7.0-18.0) mg/dL Creatinine 1.1 (0.8-1.3) mg/dL Est Cr Clr Drug Dosing 92.81 mL/min Estimated GFR (MDRD) > 60.0 ml/min Glucose 124 H (74-106) mg/dL Calcium 8.4 L (8.5-10.1) mg/dL Total Bilirubin 0.4 (0.2-1.0) mg/dL AST 19 (15-37) IU/L ALT 46 (14-63) IU/L Alkaline Phosphatase 62 (46-116) U/L Total Protein 7.4 (6.4-8.2) g/dL Albumin 3.5 (3.4-5.0) g/dL Globulin 3.9 (2.6-4.0) g/dL Albumin/Globulin Ratio 0.9 (0.9-1.6) Lipase 78 (73-393) U/L Urine Color Urine Appearance Urine pH (5.0-8.0) Ur Specific [place] (1.001-1.035) Urine Protein (NEGATIVE) mg/dL Urine Glucose (UA) (NEGATIVE) mg/dL Urine Ketones (NEGATIVE) mg/dL Urine Occult Blood (NEGATIVE) Urine Nitrite (NEGATIVE) Urine Bilirubin (NEGATIVE) Urine Urobilinogen (<2.0) EU/dL Ur Leukocyte Esterase (NEGATIVE) 11/20/20 Range/Units 21:59 WBC (4.0-11.0) K/uL RBC (4.50-5.90) M/uL Hgb (13.0-17.0) g/dL Hct (38.0-50.0) % MCV (80.0-98.0) fL MCH (27.0-32.0) pg MCHC (31.0-37.0) g/dL RDW Std Deviation (28.0-62.0) fl RDW Coeff of Joaquín (11.0-15.0) % Plt Count (150-400) K/uL MPV (7.40-12.00) fL Neut % (Auto) (48.0-80.0) % Lymph % (Auto) (16.0-40.0) % [place] % (Auto) (0.0-15.0) % Eos % (Auto) (0.0-7.0) % Baso % (Auto) (0.0-1.5) % Neut # (Auto) (1.4-5.7) K/uL Lymph # (Auto) (0.6-2.4) K/uL [place] # (Auto) (0.0-0.8) K/uL Eos # (Auto) (0.0-0.7) K/uL Baso # (Auto) (0.0-0.1) K/uL Nucleated RBC % /100WBC Nucleated RBCs # K/uL INR APTT (18.6-31.3) SEC Sodium (136-148) mmol/L Potassium (3.5-5.1) mmol/L Chloride (98-107) mmol/L Carbon Dioxide (21.0-32.0) mmol/L BUN (7.0-18.0) mg/dL Creatinine (0.8-1.3) mg/dL Est Cr Clr Drug Dosing mL/min Estimated GFR (MDRD) ml/min Glucose (74-106) mg/dL Calcium (8.5-10.1) mg/dL Total Bilirubin (0.2-1.0) mg/dL AST (15-37) IU/L ALT (14-63) IU/L Alkaline Phosphatase (46-116) U/L Total Protein (6.4-8.2) g/dL Albumin (3.4-5.0) g/dL Globulin (2.6-4.0) g/dL Albumin/Globulin Ratio (0.9-1.6) Lipase (73-393) U/L Urine Color YELLOW Urine Appearance CLEAR Urine pH 7.0 (5.0-8.0) Ur Specific [place] 1.010 (1.001-1.035) Urine Protein NEGATIVE (NEGATIVE) mg/dL Urine Glucose (UA) NEGATIVE (NEGATIVE) mg/dL Urine Ketones NEGATIVE (NEGATIVE) mg/dL Urine Occult Blood NEGATIVE (NEGATIVE) Urine Nitrite NEGATIVE (NEGATIVE) Urine Bilirubin NEGATIVE (NEGATIVE) Urine Urobilinogen 0.2 (<2.0) EU/dL Ur Leukocyte Esterase NEGATIVE (NEGATIVE) Meds: Medications Generic Name Dose Route Start Last Admin Trade Name Freq PRN Reason Stop Dose Admin Sodium Chloride 10 ml 11/20/20 20:48 11/20/20 20:59 Sodium Chloride 0.9% 10 Ml Syringe FLUSH 10 ml ASDIRECTED PRN Administration Keep Vein Open Sodium Chloride 2.5 ml 11/20/20 20:48 11/20/20 20:59 Sodium Chloride 0.9% 2.5 Ml Syringe FLUSH 2.5 ml ASDIRECTED PRN Administration Keep Vein Open Discontinued Medications Generic Name Dose Route Start Last Admin Trade Name Freq PRN Reason Stop Dose Admin Acetaminophen 650 mg 11/20/20 21:32 11/20/20 21:57 Acetaminophen 325 Mg Tab PO 11/20/20 21:33 650 mg NOW ONE Administration Sodium Chloride 1,000 mls @ 999 mls/hr 11/20/20 20:48 11/20/20 20:58 Normal Saline IV 11/20/20 21:48 999 mls/hr .Bolus ONE Administration Departure - Departure Time of Disposition: 22:11 Disposition: Home, Self-Care 01 Condition: Good Clinical Impression: Rectal bleeding Hemorrhoids Qualifiers: Hemorrhoid type: unspecified Qualified Code(s): K64.9 - Unspecified hemorrhoids Abdominal pain Qualifiers: Abdominal location: generalized Qualified Code(s): R10.84 - Generalized abdominal pain - Discharge Information Instructions: Rectal Bleeding, Abdominal Pain, Adult, [id number], Hemorrhoids Referrals: PCP,None [Primary Care Provider] - Forms: ED Department Discharge Additional Instructions: You have been seen and evaluated in the ER today secondary to rectal bleeding and abdominal pain. All your blood tests are within normal limits. Your rectal exam does reveal a small bleeding hemorrhoid which is the likely culprit of the bleeding. If your bleeding should continue or if you have persistent continued abdominal discomfort, you should make an appointment to see a primary care physician or a lens grinder apprentice for further evaluation. You will be given a prescription for acetaminophen to take as needed for pain and discomfort. The following information is given to patients seen in the emergency department who are being discharged to home. This information is to outline your options for follow-up care. We provide all patients seen in our emergency department with a follow-up referral. The need for follow-up, as well as the timing and circumstances, are variable depending upon the specifics of your emergency department visit. If you don't have a primary care physician on staff, we will provide you with a referral. We always advise you to contact your personal physician following an emergency department visit to inform them of the circumstance of the visit and for follow-up with them and/or the need for any referrals to a consulting specialist. The emergency department will also refer you to a specialist when appropriate. This referral assures that you have the opportunity for follow-up care with a specialist. All of these measure are taken in an effort to provide you with optimal care, which includes your follow-up. Under all circumstances we always encourage you to contact your private physician who remains a resource for coordinating your care. When calling for follow-up care, please make the office aware that this follow-up is from your recent emergency room visit. If for any reason you are refused follow-up, please contact the [facility] Emergency Department at and asked to speak to the emergency department charge nurse. [facility] - Primary Care [address] [place] [id number] [facility] [address] [place] [id number] Sepsis Event Note (ED) - Evaluation Sepsis Screening Result: No Definite Risk - Focused Exam Vital Signs: Vital Signs Temp Pulse Resp BP Pulse Ox 11/20/20 20:35 97.7 F 80 18 133/73 97 - My Orders Last 24 Hours: My Active Orders 11/20/20 20:48 Sodium Chloride 0.9% [Saline Flush] 10 ml FLUSH ASDIRECTED PRN Sodium Chloride 0.9% [Saline Flush] 2.5 ml FLUSH ASDIRECTED PRN 11/20/20 20:49 Saline Lock Insert [OM.PC] Stat - Assessment/Plan Last 24 Hours: My Active Orders 11/20/20 20:48 Sodium Chloride 0.9% [Saline Flush] 10 ml FLUSH ASDIRECTED PRN Sodium Chloride 0.9% [Saline Flush] 2.5 ml FLUSH ASDIRECTED PRN 11/20/20 20:49 Saline Lock Insert [OM.PC] Stat
[2020-11-20 21:25] LABS: BLOOD UREA NITROGEN,BUN 12 mg/dL (7.0-18.0); CARBON DIOXIDE,CO2 29.2 mmol/L (21.0-32.0); CHLORIDE,CL 102 mmol/L (98-107); GLUCOSE RANDOM 124 mg/dL (74-106); LIPASE 78 U/L (73-393); POTASSIUM,K 3.8 mmol/L (3.5-5.1); SODIUM,NA 137 mmol/L (136-148)
[2020-11-20] MEDS ORDERED: Acetaminophen 325 MG Tab PO ONE (21:32)
[2020-11-20 22:43] VITALS: BP 139/77; PULSE 66
== END 2020-11-20 22:37 | disposition home or self-care (01) ==
LOC: MW.ED 20:23
DX: K62.5 Hemorrhage of anus and rectum (principal); K64.9 Unspecified hemorrhoids; Z88.0 Allergy status to penicillin
CPT/HCPCS: 36415; 80053; 81003; 83690; 85025; 85610; 85730; 99283; A9270; J7030

== ENCOUNTER 2023-01-13 11:50 | Emergency (ER) | payer SELFPAY ==
[2023-01-13] MEDS ORDERED: Ibuprofen 600 MG Tab PO ONE (12:41)
[2023-01-13 12:45] VITALS: BP 138/89; PULSE 89
== END 2023-01-13 14:13 ==
LOC: MW.ED 11:50
DX: Z02.89 Encounter for other administrative examinations (principal); Z88.0 Allergy status to penicillin; V86.56XA Driver of dirt bike or motor/cross bike injured in nontraffic accident, initial encounter
CPT/HCPCS: 73030; 73562; 99284; A9270

== ENCOUNTER 2023-03-09 12:53 | Emergency (ER) | payer SELFPAY ==
[2023-03-09] MEDS ORDERED: Sodium Chloride 0.9% 2.5 ML Syringe FLUSH PRN (12:56)
[2023-03-09] MEDS ORDERED: Sodium Chloride 0.9% 10 ML Syringe FLUSH PRN (12:56)
[2023-03-09] MEDS ORDERED: Naloxone 0.4 MG/ML SDV IVPUSH ONE (12:56)
[2023-03-09] MEDS ORDERED: Sodium Chloride 0.9% 1,000 ML IV ONE (12:58)
[2023-03-09 13:07] LABS: BASOPHILS PERCENT AUTO 0.3 % (0.0-1.5); EOSINOPHILS ABSOLUTE AUTO 0.1 K/uL (0.0-0.7); HEMATOCRIT 47.9 % (38.0-50.0); HEMOGLOBIN 16.1 g/dL (13.0-17.0); LYMPHOCYTES ABSOLUTE AUTO 1.5 K/uL (0.6-2.4); LYMPHOCYTES PERCENT AUTO 22.2 % (16.0-40.0); MEAN CORPUSCULAR HEMOGLOBIN 28.9 pg (27.0-32.0); MEAN CORPUSCULAR HGB CONC 33.6 g/dL (31.0-37.0); MONOCYTES ABSOLUTE AUTO 0.4 K/uL (0.0-0.8); MONOCYTES PERCENT AUTO 6.4 % (0.0-15.0); NEUTROPHILS ABSOLUTE AUTO 4.8 K/uL (1.4-5.7); NEUTROPHILS PERCENT AUTO 69.1 % (48.0-80.0); PLATELET COUNT,PLT 170 K/uL (150-400); RED BLOOD CELL COUNT 5.57 M/uL (4.50-5.90); WHITE BLOOD CELL COUNT,WBC 6.89 K/uL (4.0-11.0)
[2023-03-09 13:29] LABS: A/G RATIO 0.9 (0.9-1.6); ALBUMIN 3.4 g/dL (3.4-5.0); BILIRUBIN TOTAL 0.4 mg/dL (0.2-1.0); CALCIUM 8.1 mg/dL (8.5-10.1); CARBON DIOXIDE,CO2 29.4 mmol/L (21.0-32.0); EST CRCL DRUG DOSING (CG) 102.75 mL/min; POTASSIUM,K 3.4 mmol/L (3.5-5.1); PROTEIN TOTAL,TP 7.1 g/dL (6.4-8.2)
[2023-03-09 14:44] LABS: AMPHETAMINES SCREEN, URINE PRESUMPTIVE POSITIVE (CUTOFF=500); BARBITURATE SCREEN,URINE NEGATIVE (CUTOFF=200); BENZODIAZEPINES SCREEN,URINE NEGATIVE (CUTOFF=150); BUPRENORPHINE SCREEN,URINE NEGATIVE (CUTOFF=10); METHADONE SCREEN, URINE NEGATIVE (CUTOFF=200); METHAMPHETAMINES SCREEN, URINE PRESUMPTIVE POSITIVE (CUTOFF=500); OXYCODONE SCREEN,URINE NEGATIVE (CUT0FF=100); PCP SCREEN,URINE NEGATIVE (CUTOFF=25); PROPOXYPHENE SCREEN,URINE NEGATIVE (CUTOFF=300); THC SCREEN,URINE 20 NG/ML PRESUMPTIVE POSITIVE (CUTOFF=50)
[2023-03-09 17:47] VITALS: BP 140/92; PULSE 85
== END 2023-03-09 17:40 ==
LOC: MW.ED 12:53
DX: F19.10 Other psychoactive substance abuse, uncomplicated (principal); Z88.0 Allergy status to penicillin
CPT/HCPCS: 36415; 71045; 74018; 80053; 80305; 80307; 85025; 96374; 99285; J2310; J3490; J7030; 99284

== ENCOUNTER 2023-07-25 21:35 | Emergency (ER) | payer OTHER ==
[2023-07-25] MEDS ORDERED: Ondansetron 4 MG/2 ML SDV IVPUSH ONE (21:41)
[2023-07-25] MEDS ORDERED: Sodium Chloride 0.9% 2.5 ML Syringe FLUSH PRN (21:41)
[2023-07-25] MEDS ORDERED: Sodium Chloride 0.9% 1,000 ML IV ONE ×2 (21:41→23:02)
[2023-07-25] MEDS ORDERED: Sodium Chloride 0.9% 10 ML Syringe FLUSH PRN (21:41)
[2023-07-25] MEDS ORDERED: Pantoprazole 40 MG in Sodium Chloride 0.9% 10 ML IVPUSH ONE (21:41)
[2023-07-25 22:11] LABS: BASOPHILS ABSOLUTE AUTO 0.04 K/uL (0.00-0.20); BASOPHILS PERCENT AUTO 0.5 % (0.0-1.0); EOSINOPHILS ABSOLUTE AUTO 0.04 K/uL (0.00-0.45); EOSINOPHILS PERCENT AUTO 0.5 % (0.0-6.0); HEMATOCRIT 47.7 % (42.0-52.0); HEMOGLOBIN 16.2 g/dL (14.0-18.0); IMMATURE GRAN ABSOLUTE AUTO 0.04 K/uL (0.00-0.05); IMMATURE GRAN PERCENT AUTO 0.5 % (0.0-0.4); LYMPHOCYTES ABSOLUTE AUTO 1.25 K/uL (1.00-4.80); LYMPHOCYTES PERCENT AUTO 15.8 % (24.0-44.0); MEAN CORPUSCULAR HEMOGLOBIN 28.5 pg (28.0-32.0); MEAN CORPUSCULAR VOLUME 83.8 fL (83.0-99.0); MEAN PLATELET VOLUME 10.8 fL (9.4-12.4); MONOCYTES ABSOLUTE AUTO 0.66 K/uL (0.00-0.80); MONOCYTES PERCENT AUTO 8.3 % (0.0-8.0); NEUTROPHILS ABSOLUTE AUTO 5.88 K/uL (1.80-7.70); NEUTROPHILS PERCENT AUTO 74.4 % (41.0-71.0); PLATELET COUNT,PLT 155 K/uL (150-400); RED BLOOD CELL COUNT 5.69 M/uL (4.52-5.90); WHITE BLOOD CELL COUNT,WBC 7.91 K/uL (3.9-11.3)
[2023-07-25] MEDS ORDERED: Iopamidol 755 MG/ML 500 ML Multipack Bottle IVPUSH STA (22:28)
[2023-07-25 22:31] LABS: INR 1.1 (0.86-1.11)
[2023-07-25 22:34] LABS: A/G RATIO 1.1 (0.9-1.6); ALBUMIN 4.1 g/dL (3.4-5.0); BILIRUBIN TOTAL 1.2 mg/dL (0.2-1.0); CALCIUM 8.5 mg/dL (8.5-10.1); CARBON DIOXIDE,CO2 28.8 mmol/L (21.0-32.0); CREATININE 1.1 mg/dL (0.8-1.3); EST CRCL DRUG DOSING (CG) 89.79 mL/min; POTASSIUM,K 3.5 mmol/L (3.5-5.1)
[2023-07-25 22:41] LABS: CORONAVIRUS COVID-19 NAA NEGATIVE (NEGATIVE); INFLUENZA A NAA NEGATIVE (NEGATIVE); INFLUENZA B NAA NEGATIVE (NEGATIVE)
[2023-07-25] MEDS ORDERED: Dicyclomine 10 MG Cap PO ONE (23:01)
[2023-07-26 00:02] VITALS: BP 158/101; PULSE 98
== END 2023-07-26 ==
LOC: MW.ED 21:35
DX: K29.70 Gastritis, unspecified, without bleeding (principal); Z88.0 Allergy status to penicillin; Z91.02 Food additives allergy status; Z88.8 Allergy status to other drugs, medicaments and biological substances; Z79.899 Other long term (current) drug therapy; Z20.822 Contact with and (suspected) exposure to COVID-19
CPT/HCPCS: 0240U; 36415; 74177; 80053; 83690; 85025; 85610; 96361; 96374; 96375; 99284; A9270; C9113; J2405; J3490; J7030; Q9967